=== PATIENT | female | born 1950 | race Caucasian/White ===

== ENCOUNTER 2020-04-28 18:15 | Inpatient (IN) | payer MEDICARE, BC ==
[~2020-04-28] VITALS: Ht 167.6 cm; Wt 74.4 kg
[2020-04-28] VITALS (8 sets, daily range): BP systolic 136–149; BP diastolic 53–77
[~2020-04-28 18:15] MED LIST: CRANBERRY PO; ESTR-113 PO; EZET10TA20 PO; FENO54TA PO; GLIM2TAB7 PO; METF10007 PO; MULT-445 PO; SOLI10TA2 PO; SULF-143 PO
[2020-04-28] MEDS ORDERED: IV DEXTROSE 5% 250 ML BAG. IV PRN (19:15)
[2020-04-28] MEDS ORDERED: C.DIFF MED SCREEN BY RX. MC ONE (19:15)
[2020-04-28] MEDS ORDERED: ALBU2.5V8 INH (19:58)
[2020-04-28] MEDS ORDERED: OXYB5TAB10 PO (19:58)
[2020-04-28] MEDS ORDERED: LISI-334 PO (19:58)
[2020-04-28] MEDS ORDERED: COLE625T12 PO (19:58)
[2020-04-28] MEDS ORDERED: INSU100I13 SQ (19:59)
[2020-04-28] MEDS ORDERED: cefTRIAXone IV Push 1 GM VIAL. IVP SCH ×2 (20:00→21:00)
[2020-04-28] MEDS ORDERED: ENOXAPARIN 40 MG/0.4 ML SYRINGE. SQ SCH (20:00)
[2020-04-28 20:11] LABS: BASE EXCESS ABG -3 mmol/L (-3-3); HCO3 ABG 21 mmol/L (21-28); PCO2 ABG 33 mmHg (35-46); PO2 ABG 75 mmHg (65-108); SAT O2 ABG 95 % (92-99)
[2020-04-28] MEDS ORDERED: ALBUTEROL SULFATE 2.5 MG/3 ML NEBU. INH PRN (20:15)
[2020-04-28 20:39] LABS: FIO2 ABG 100
[2020-04-28] MEDS ORDERED: INFLIXIMAB IV ONE (21:00)
[2020-04-28] MEDS ORDERED: REMDESIVIR LOAD in IV NORMAL SALINE 250ML TV IV ONE (21:00)
[2020-04-28] MEDS ORDERED: NORMAL SALINE IV ONE (21:00)
[2020-04-28] MEDS: OXYBUTYNIN CHLORIDE 5 MG TABLET PO SCH (21:10)
[2020-04-28] MEDS: DOXYCYCLINE HYCLATE 100 MG TABLET PO SCH (21:10)
[2020-04-28] MEDS: LISINOPRIL 20 MG TABLET PO SCH (21:10)
[2020-04-28] MEDS: COLESEVELAM HCL 625 MG TABLET PO SCH (21:11)
[2020-04-28] MEDS: ENOXAPARIN 40 MG/0.4 ML SYRINGE. SQ SCH (21:12)
[2020-04-28] MEDS: methylPREDNISolone SOD SUCC PF 40 MG/ML VIAL. IV SCH (21:12)
[2020-04-28] MEDS: INSULIN GLARGINE SYRINGE. SQ SCH (21:15)
[2020-04-29] VITALS (28 sets, daily range): BP systolic 124–172; BP diastolic 61–88
--- NOTE | 2020-04-29 02:00 | NUR ---
Pt arrived to unit on previous shift at approx 1825. At beginning of this RNs shift, call placed to Dr. Luz to notify of pt admission and status. Received orders to continue home meds per medication record from [facility], [facility], start Doxycycline 100 mg BID, Rocephin 1 gm IVP Q24hrs, increase Lantus to 35 units QHS, scheduled Humalog 10 units TID with high dose sliding scale, draw labs in am, consult pulmonology and ID, and okay to eat ADA diet. Orders entered into system. Current medications reconciled. Call then placed to Dr. De La Cruz. Notified of pt diagnosis and status. Received orders for convelescent plasma and redemsivir per pharmacy. Orders entered into system. Consent for blood product and participation in convelscent plasma study obtained. Convelescent plasma started at 0118 with no adverse effects noted at this time. Pt is alert and oriented x4, VSS, afebrile. Pt is currently on 15L non-rebreather mask. Pt was able to eat a cup of pudding earlier in the shift with 10L n/c, but SPO2 did drop to 87-88%. Attempted to place pt on 50% venti mask, SPO2 again in the 80s. Dr. De La Cruz is aware of pts current respiratory status. Upper lobes wheezy, lower lobes coarse and diminished upon auscultation. Radial and pedal pulses equal and strong. Pts HOB is currently elevated, pt is able to cough and deep breath and has spit up small amounts of brown colored mucus this shift. Pt is within sight of care team with water and call light within reach. Addendum: 04/29/20 at 0310 by SHENA MAO RN RN Spelling correction: Cole
[2020-04-29 05:02] LABS: BASO % 0 % (0-3); EOS % 0 % (0-3); HEMATOCRIT 35.7 % (36.0-47.0); HEMOGLOBIN 12.1 g/dL (12.0-15.5); LYMPH # 0.5 x10^3/uL (1.0-4.8); LYMPH % 4 % (24-48); MEAN CORPUSCULAR HEMOGLOBIN 32 pg (25-35); MEAN CORPUSCULAR HGB CONC 34 g/dL (31-37); MEAN CORPUSCULAR VOLUME 94 fL (79-100); MONO # 0.7 x10^3/uL (0.0-1.1); MONO % 6 % (0-9); NEUT # 10.7 x10^3/uL (1.8-7.7); NEUT % 90 % (31-73); PLATELET COUNT 220 x10^3/uL (140-400); RED CELL DISTRIBUTION WIDTH 12.9 % (11.5-14.5); WHITE BLOOD COUNT 11.9 x10^3/uL (4.0-11.0)
[2020-04-29 05:41] LABS: ALBUMIN 2.3 g/dL (3.4-5.0); ALBUMIN/GLOBULIN RATIO 0.5 (1.0-1.7); C-REACTIVE PROTEIN 44.6 mg/L (0-3.3); GFR 54.8; POTASSIUM 4.4 mmol/L (3.5-5.1); TOTAL BILIRUBIN 0.3 mg/dL (0.2-1.0); TOTAL PROTEIN 6.6 g/dL (6.4-8.2)
[2020-04-29] MEDS: methylPREDNISolone SOD SUCC PF 40 MG/ML VIAL. IV SCH ×3 (05:42→22:02)
[2020-04-29 06:46] LABS: % ATYL 2 % (0-0); % BANDS 5 % (0-9); % LYMPHS 8 % (24-48); % MONOS 3 % (0-10); % SEGS 82 % (35-66); PLT ESTIMATE ADEQUATE (ADEQUATE)
--- NOTE | 2020-04-29 07:10 | PDOC ---
Infectious Disease Note Vital Sign Vital Signs Vital Signs Date Time Temp Pulse Resp B/P (MAP) Pulse Ox O2 Delivery O2 Flow Rate FiO2 04/29/20 06:00 78 26 130/67 (88) 93 NonRebreather Mask 15.0 04/29/20 04:23 97.5 97.5 Labs Lab Laboratory Tests Test 04/28/20 19:13 04/28/20 21:42 04/29/20 04:55 O2 Saturation 95 % (92-99) Arterial Blood pH 7.41 (7.35-7.45) Arterial Blood pCO2 at Patient Temp 33 mmHg (35-46) Arterial Blood pO2 at Patient Temp 75 mmHg (65-108) Arterial Blood HCO3 21 mmol/L (21-28) Arterial Blood Base Excess -3 mmol/L (-3-3) FiO2 100 Glucose (Fingerstick) 301 mg/dL (70-99) White Blood Count 11.9 x10^3/uL (4.0-11.0) Red Blood Count 3.80 x10^6/uL (3.50-5.40) Hemoglobin 12.1 g/dL (12.0-15.5) Hematocrit 35.7 % (36.0-47.0) Mean Corpuscular Volume 94 fL (79-100) Mean Corpuscular Hemoglobin 32 pg (25-35) Mean Corpuscular Hemoglobin Concent 34 g/dL (31-37) Red Cell Distribution Width 12.9 % (11.5-14.5) Platelet Count 220 x10^3/uL (140-400) Neutrophils (%) (Auto) 90 % (31-73) Lymphocytes (%) (Auto) 4 % (24-48) Monocytes (%) (Auto) 6 % (0-9) Eosinophils (%) (Auto) 0 % (0-3) Basophils (%) (Auto) 0 % (0-3) Neutrophils # (Auto) 10.7 x10^3/uL (1.8-7.7) Lymphocytes # (Auto) 0.5 x10^3/uL (1.0-4.8) Monocytes # (Auto) 0.7 x10^3/uL (0.0-1.1) Eosinophils # (Auto) 0.0 x10^3/uL (0.0-0.7) Basophils # (Auto) 0.0 x10^3/uL (0.0-0.2) Segmented Neutrophils % 82 % (35-66) Band Neutrophils % 5 % (0-9) Lymphocytes % 8 % (24-48) Atypical Lymphocytes % (Manual) 2 % (0-0) Monocytes % 3 % (0-10) Platelet Estimate Adequate (ADEQUATE) D-Dimer (Sera) 1.74 ug/mlFEU (0.00-0.50) Sodium Level 141 mmol/L (136-145) Potassium Level 4.4 mmol/L (3.5-5.1) Chloride Level 107 mmol/L (98-107) Carbon Dioxide Level 25 mmol/L (21-32) Anion Gap 9 (6-14) Blood Urea Nitrogen 23 mg/dL (7-20) Creatinine 1.0 mg/dL (0.6-1.0) Estimated GFR (Cockcroft-Gault) 54.8 BUN/Creatinine Ratio 23 (6-20) Glucose Level 222 mg/dL (70-99) Calcium Level 9.0 mg/dL (8.5-10.1) Total Bilirubin 0.3 mg/dL (0.2-1.0) Aspartate Amino Transf (AST/SGOT) 32 U/L (15-37) Alanine Aminotransferase (ALT/SGPT) 25 U/L (14-59) Alkaline Phosphatase 39 U/L (46-116) C-Reactive Protein, Quantitative 44.6 mg/L (0-3.3) Total Protein 6.6 g/dL (6.4-8.2) Albumin 2.3 g/dL (3.4-5.0) Albumin/Globulin Ratio 0.5 (1.0-1.7) Objective Assessment Acute Hypoxic Resp failure - worsening COVID + Abx allergies - Cipro intolerance (upset stomach) Azithromycin - rash Loose stools - has been doing bowel prep for Barium enema Chronic UTI has been on Nitrofurantoin DM Plan Plan of Care Cont Steroids Plasma and Remdesivir ordered - d/w nursing Add Tropnon I and LDH F/u labs and cults D/c Rocephin and dose Meropenem Cont Doxy for now Dose Zyvox for now ? Pending intubation Critically ill 35 mins D/w Nursing Thank you # [id number] PEG VELAZQUEZ MD Apr 29, 2020 07:10
[2020-04-29] MEDS: metFORMIN 500 MG TABLET PO SCH ×2 (08:16→16:10)
[2020-04-29] MEDS: DOXYCYCLINE HYCLATE 100 MG TABLET PO SCH ×2 (08:16→20:52)
[2020-04-29] MEDS: GLIMEPIRIDE 2 MG TABLET. PO SCH (08:17)
[2020-04-29] MEDS: OXYBUTYNIN CHLORIDE 5 MG TABLET PO SCH ×3 (08:17→20:52)
[2020-04-29] MEDS: FENOFIBRATE,MICRONIZED 134 MG CAPSULE PO SCH (08:22)
[2020-04-29] MEDS: COLESEVELAM HCL 625 MG TABLET PO SCH ×2 (08:23→20:52)
[2020-04-29] MEDS: INSULIN LISPRO 300 UNITS/3 ML VIAL. SQ SCH ×6 (08:53→17:19)
[2020-04-29 09:36] LABS: BASE EXCESS ABG -2 mmol/L (-3-3); HCO3 ABG 22 mmol/L (21-28); PCO2 ABG 35 mmHg (35-46); PO2 ABG 54 mmHg (65-108); SAT O2 ABG 88 % (92-99)
[2020-04-29 09:37] LABS: FIO2 ABG 80%
--- NOTE | 2020-04-29 09:44 | CONS ---
DATE OF CONSULTATION: 04/29/2020 INFECTIOUS DISEASE CONSULTATION NOTE PATIENT'S ROOM: ICU 15. REQUESTING PHYSICIAN: Mars Luz MD REASON FOR CONSULTATION: Positive COVID pneumonia. HISTORY OF PRESENT ILLNESS: The patient is a pleasant 69-year-old female with a history of diabetes who last Thursday began taking a bowel prep for a barium enema. She developed shortness of air, cough and had a change in taste, but not change in smell. She became more short of air. She [place] [facility] [place] CT scan of her chest that showed no embolus, but she had multifocal ground glass nodular opacities, also had some prominent lymph nodes. Subsequently, she was diagnosed with COVID-19. She was placed on Solu-Medrol. She then had a CT scan of the head that showed no acute intracranial hemorrhage. White blood cell count on arrival was 7.1 with 79% neutrophils. Urinalysis with nitrite and leukocyte esterase negative, few bacteria, 5-10 wbc's. Of note, she does take chronic nitrofurantoin for recurrent urinary tract infections. Her respiratory status was worsened. She has now been transferred to [facility] for further care and evaluation and she has now on a nonrebreather flow rate of 15. Currently, she is lying in bed. She is complaining mainly of cough and feels fatigued, minimal sputum, no blood and her loose stools have improved. No dysuria, frequency. PAST MEDICAL HISTORY: Positive for obesity, recurrent urinary tract infections, diabetes. PAST SURGICAL HISTORY: Positive for eye surgery, tonsillectomy, cholecystectomy, hysterectomy and bladder lift. REVIEW OF SYSTEMS: Otherwise negative. ALLERGIES: LISTED CIPRO, WHICH CAUSES UPSET STOMACH; AZITHROMYCIN DID CAUSE RASH AND HMG-COA REDUCTASE INHIBITORS. SOCIAL HISTORY: She is . She has a dog. She denies any recent travel or exposure. She does not work. She states she has unknown some friends who have been positive for COVID, but she has not been around them. She denies any tobacco. FAMILY HISTORY: Noncontributory. CURRENT MEDICATIONS: Include plasma as ordered, remdesivir has been dose x 1. She is on ceftriaxone. She is on Welchol. Doxycycline, Lovenox, fenofibrate, Amaryl, insulin, Prinivil, metformin, Glucophage. PHYSICAL EXAMINATION: VITAL SIGNS: She is afebrile, temperature 97.5, pulse is 78, respirations 26, blood pressure 130/67, satting 93% on a nonrebreather at 15 flow rate. CONSTITUTIONAL: She is alert. She is cooperative. She does look a little fatigued. She is in no acute distress. HEENT: She has normal conjunctivae. Oral cavity, pharynx is dry. NECK: Supple, no JVD. LUNGS: Have some diffuse rhonchi. HEART: S1, S2. ABDOMEN: Obese, soft, no guarding, no rebound. EXTREMITIES: Without clubbing, cyanosis or gross edema. Peripheral IV sites are clean. NEUROLOGIC: She is nonfocal, answers questions. PSYCHIATRIC: Affect is appropriate. LABORATORY VALUES: White count 11.9, hemoglobin 12.1, platelets 220, neutrophils 90, lymphs are 4. Creatinine is 1, glucose 222, AST 32, ALT 35, alk phos 39. CRP of 44.6. IMPRESSION: 1. Acute hypoxic respiratory failure, worsening. 2. COVID positive. 3. Antibiotic allergies CIPRO INTOLERANCE CAUSES UPSET STOMACH, AZITHROMYCIN CAUSES A RASH. 4. Loose stools, had been prepping for a bowel prep for a barium enema. 5. Chronic urinary tract infection, has been on nitrofurantoin. 6. Diabetes. RECOMMENDATIONS: We will continue steroids. Remdesivir has been ordered, plasma is ordered as well. Check a troponin I as well as an LDH, followup labs and cultures. Discontinue Rocephin and dose meropenem based on her frequent urinary tract infections and need for suppressive nitrofurantoin. There also has a documentation that she may have had some Augmentin recently. We will continue doxycycline for now and we will dose Zyvox for now too. This was discussed with nursing. She is a questionable pending intubation. She is critically ill. Thank you for allowing me to see and participate in this patient's care. Should you have any questions, please do not hesitate to contact me. PEG VELAZQUEZ MD DR: MARKO/radha JOB#: [id number] / [id number] SARANYA
[2020-04-29] MEDS: STERILE WATER for RESP 1,000 ML BAG. INH PRN ×2 (10:00→17:03)
--- NOTE | 2020-04-29 10:00 | HP ---
ADMIT DATE: 04/28/2020 HISTORY OF PRESENT ILLNESS: The patient is a 69-year-old female patient, who was admitted on 04/26/2020 through the Emergency Room of [facility] with generalized weakness. She was brought by EMS with reported generalized weakness after getting up to use the restroom. On the morning of admission, the patient has been doing dry enema in preparation for barium enema. The patient was found to be febrile with a temperature of 101.1. She reports 1-week history of cough and generalized malaise and has been seen by primary care physician who was started her empirically on antibiotic for possible bronchitis. She has undergone a chest x-ray as an outpatient and was noted to have some possible concern for infiltrate. The patient denies known exposure to COVID-19. Denied any nausea or vomiting. Apparently, her daughter at age of 36 because of colon cancer and she was investigated by Dr. Mitchell and apparently had a colonoscopy and also was preparing for barium enema for further evaluation of her colon according to her, she was admitted to [facility] and was started on IV antibiotic as well as IV Solu-Medrol. When she arrived, she was actually on room air, but over the next 48 hours her oxygen requirement has dramatically worsened up to 15 liters by nonrebreather mask. Her chest x-ray has dramatically worsened and therefore a decision was made to transfer her to [facility] ICU for further evaluation and to consult the pathology technician and the Infectious Disease specialist. PAST MEDICAL HISTORY: Significant for type 2 diabetes mellitus, hyperlipidemia, hypertension, and overactive bladder. PAST SURGICAL HISTORY: Significant for tonsillectomy, cholecystectomy, total abdominal hysterectomy, hemorrhoidectomy and colonoscopy x 2. ALLERGIES: SHE IS ALLERGIC TO STATINS, CIPROFLOXACIN AND ERYTHROMYCIN. MEDICATIONS: Her home medication on admission to [facility] consisted of amoxicillin and clavulanic acid 875 mg twice a day, nitrofurantoin monohydrate 100 mg twice a day, albuterol sulfate 2 puffs every 6 hours. She was also on Welchol 625 mg, she takes 6 tablets daily; fenofibrate nanocrystallized 145 mg once a day, lisinopril 20 mg once a day; methylprednisolone 4 mg once a day; metformin 1000 mg twice a day; Lantus insulin 27 units at bedtime, sulfonylurea glimepiride 4 mg daily and Detrol LA 4 mg capsule once a day. FAMILY HISTORY: She is the only child. She has no brothers or sisters. Her father at age of 74 because of complication of diabetes. Her mother at the age of 82 at the [facility] after she had her cerebrovascular accident. SOCIAL HISTORY: She is and has 2 daughters who are healthy. One daughter at age of 36 because of colon cancer. She never smoked, does not drink alcohol or use any drugs. She was a [id number] mom. REVIEW OF SYSTEMS: GENERAL: When I saw her this morning, she was resting slightly propped up in bed, eating her breakfast, continued to desaturate and oxygen saturation was 84% on 15 liters by nasal cannula. She was pale, but no jaundice, cyanosis or thyromegaly. No jugular venous distention. No lower limb edema. VITAL SIGNS: Her heart rate was 83, blood pressure 146/71, temperature was 97.5, respiratory rate 29 and oxygen saturation was 84% by 15 liters by nasal cannula. HEAD, EYES, EARS, NOSE AND THROAT: Showed normocephalic, atraumatic. NECK: Supple. HEART: Showed normal first and second heart sounds. No gallop or murmur. CHEST: Showed central trachea, equal bilateral expansion, air entry, vesicular sounds with coarse crackles and few scattered rhonchi bilaterally. ABDOMEN: Distended, soft, nontender. NEUROLOGIC: She is awake, alert, responding appropriately. All cranial nerves intact. EXTREMITIES: She moves extremities without difficulty. LABORATORY DATA: This morning showed a white cell count of 11,900, hemoglobin 12, hematocrit 36, MCV 94 and platelet count 220,000 with a manual differential showed 90% polymorphs. Her serum sodium was 141, potassium 4.4, chloride 107, bicarbonate 25, anion gap of 9, BUN 23, creatinine 1, estimated GFR was 54.8 mL per minute. Her glucose was 122, calcium was 9. Total bilirubin, AST, ALT, alkaline phosphatase were normal. Her lactate dehydrogenase was 617. C-reactive protein was 44.6. Total protein was 6.6, albumin 2.3. Her D-dimer was high at 1.74 and blood gas showed a pH of 7.41, pCO2 of 33, pO2 of 75, bicarbonate 21, oxygen saturation was 95% on FiO2 of 100%. ASSESSMENT AND PLAN: 1. In summary, this is a 69-year-old female patient with COVID-19 pneumonia. 2. Acute hypoxic respiratory failure. 3. The patient has multiple other medical problems including: A. Hypertension. B. Type 2 diabetes mellitus. C. Hyperlipidemia. D. Overactive bladder. PLAN: Plan is to continue with IV antibiotic in the form of ceftriaxone as well as doxycycline. Continue with DVT prophylaxis. Continue with GI prophylaxis. Continue to monitor blood sugar and adjust insulin as needed. I did increase her Lantus to 35 units at bedtime, started her on scheduled dose of Humalog insulin 10 units before meals plus high dose sliding scale. I have consulted the Infectious Disease specialist as well as the pathology technician. The patient will need to be started on remdesivir as well as convalescent plasma. The patient's condition is critical and she might require eventually intubation and mechanical ventilation. KAILEY FRANK MD DR: SHAWN/radha JOB#: [id number] / [id number]
--- NOTE | 2020-04-29 11:07 | RAD ---
EXAM: AP View of the chest DATE: 04/29/2020 9:05 AM INDICATION: worsening SOB COMPARISON: No Prior FINDINGS: The heart is not enlarged. Mediastinal and hilar contours are normal. Diffuse bilateral parenchymal airspace opacities may represent consolidative process such as pneumonia. No pleural effusion or pneumothorax. IMPRESSION: Diffuse bilateral parenchymal airspace opacities may represent consolidative process such as pneumonia. Electronically signed by: Miguel Scanlon MD (04/29/2020 11:04 AM) [id number]
[2020-04-29] MEDS: MEROPENEM 500 MG in IV NORMAL SALINE 50ML 50 ML IV SCH ×2 (11:57→17:39)
[2020-04-29] MEDS: LACTOBACILLUS RHAMNOSUS GG 1 CAPSULE. PO SCH ×2 (11:57→20:52)
--- NOTE | 2020-04-29 14:45 | PDOC ---
PULMONARY PROGRESS NOTES DATE: 04/29/20 TIME: 14:44 Vitals Vital Signs Date Time Temp Pulse Resp B/P (MAP) Pulse Ox O2 Delivery O2 Flow Rate FiO2 04/29/20 14:00 82 23 146/71 (96) 95 Nasal Cannula 40.0 04/29/20 12:00 98.4 98.4 Labs Laboratory Tests Test 04/28/20 19:13 04/28/20 21:42 04/29/20 04:55 04/29/20 09:33 O2 Saturation 95 % (92-99) 88 % (92-99) Arterial Blood pH 7.41 (7.35-7.45) 7.41 (7.35-7.45) Arterial Blood pCO2 at Patient Temp 33 mmHg (35-46) 35 mmHg (35-46) Arterial Blood pO2 at Patient Temp 75 mmHg (65-108) 54 mmHg (65-108) Arterial Blood HCO3 21 mmol/L (21-28) 22 mmol/L (21-28) Arterial Blood Base Excess -3 mmol/L (-3-3) -2 mmol/L (-3-3) FiO2 100 80% Glucose (Fingerstick) 301 mg/dL (70-99) White Blood Count 11.9 x10^3/uL (4.0-11.0) Red Blood Count 3.80 x10^6/uL (3.50-5.40) Hemoglobin 12.1 g/dL (12.0-15.5) Hematocrit 35.7 % (36.0-47.0) Mean Corpuscular Volume 94 fL (79-100) Mean Corpuscular Hemoglobin 32 pg (25-35) Mean Corpuscular Hemoglobin Concent 34 g/dL (31-37) Red Cell Distribution Width 12.9 % (11.5-14.5) Platelet Count 220 x10^3/uL (140-400) Neutrophils (%) (Auto) 90 % (31-73) Lymphocytes (%) (Auto) 4 % (24-48) Monocytes (%) (Auto) 6 % (0-9) Eosinophils (%) (Auto) 0 % (0-3) Basophils (%) (Auto) 0 % (0-3) Neutrophils # (Auto) 10.7 x10^3/uL (1.8-7.7) Lymphocytes # (Auto) 0.5 x10^3/uL (1.0-4.8) Monocytes # (Auto) 0.7 x10^3/uL (0.0-1.1) Eosinophils # (Auto) 0.0 x10^3/uL (0.0-0.7) Basophils # (Auto) 0.0 x10^3/uL (0.0-0.2) Segmented Neutrophils % 82 % (35-66) Band Neutrophils % 5 % (0-9) Lymphocytes % 8 % (24-48) Atypical Lymphocytes % (Manual) 2 % (0-0) Monocytes % 3 % (0-10) Platelet Estimate Adequate (ADEQUATE) D-Dimer (Sera) 1.74 ug/mlFEU (0.00-0.50) Sodium Level 141 mmol/L (136-145) Potassium Level 4.4 mmol/L (3.5-5.1) Chloride Level 107 mmol/L (98-107) Carbon Dioxide Level 25 mmol/L (21-32) Anion Gap 9 (6-14) Blood Urea Nitrogen 23 mg/dL (7-20) Creatinine 1.0 mg/dL (0.6-1.0) Estimated GFR (Cockcroft-Gault) 54.8 BUN/Creatinine Ratio 23 (6-20) Glucose Level 222 mg/dL (70-99) Calcium Level 9.0 mg/dL (8.5-10.1) Total Bilirubin 0.3 mg/dL (0.2-1.0) Aspartate Amino Transf (AST/SGOT) 32 U/L (15-37) Alanine Aminotransferase (ALT/SGPT) 25 U/L (14-59) Alkaline Phosphatase 39 U/L (46-116) Lactate Dehydrogenase 617 U/L (81-234) C-Reactive Protein, Quantitative 44.6 mg/L (0-3.3) Total Protein 6.6 g/dL (6.4-8.2) Albumin 2.3 g/dL (3.4-5.0) Albumin/Globulin Ratio 0.5 (1.0-1.7) Test 04/29/20 12:03 Glucose (Fingerstick) 254 mg/dL (70-99) Laboratory Tests Test 04/28/20 19:13 04/28/20 21:42 04/29/20 04:55 04/29/20 09:33 O2 Saturation 95 % (92-99) 88 % (92-99) Arterial Blood pH 7.41 (7.35-7.45) 7.41 (7.35-7.45) Arterial Blood pCO2 at Patient Temp 33 mmHg (35-46) 35 mmHg (35-46) Arterial Blood pO2 at Patient Temp 75 mmHg (65-108) 54 mmHg (65-108) Arterial Blood HCO3 21 mmol/L (21-28) 22 mmol/L (21-28) Arterial Blood Base Excess -3 mmol/L (-3-3) -2 mmol/L (-3-3) FiO2 100 80% Glucose (Fingerstick) 301 mg/dL (70-99) White Blood Count 11.9 x10^3/uL (4.0-11.0) Red Blood Count 3.80 x10^6/uL (3.50-5.40) Hemoglobin 12.1 g/dL (12.0-15.5) Hematocrit 35.7 % (36.0-47.0) Mean Corpuscular Volume 94 fL (79-100) Mean Corpuscular Hemoglobin 32 pg (25-35) Mean Corpuscular Hemoglobin Concent 34 g/dL (31-37) Red Cell Distribution Width 12.9 % (11.5-14.5) Platelet Count 220 x10^3/uL (140-400) Neutrophils (%) (Auto) 90 % (31-73) Lymphocytes (%) (Auto) 4 % (24-48) Monocytes (%) (Auto) 6 % (0-9) Eosinophils (%) (Auto) 0 % (0-3) Basophils (%) (Auto) 0 % (0-3) Neutrophils # (Auto) 10.7 x10^3/uL (1.8-7.7) Lymphocytes # (Auto) 0.5 x10^3/uL (1.0-4.8) Monocytes # (Auto) 0.7 x10^3/uL (0.0-1.1) Eosinophils # (Auto) 0.0 x10^3/uL (0.0-0.7) Basophils # (Auto) 0.0 x10^3/uL (0.0-0.2) Segmented Neutrophils % 82 % (35-66) Band Neutrophils % 5 % (0-9) Lymphocytes % 8 % (24-48) Atypical Lymphocytes % (Manual) 2 % (0-0) Monocytes % 3 % (0-10) Platelet Estimate Adequate (ADEQUATE) D-Dimer (Sera) 1.74 ug/mlFEU (0.00-0.50) Sodium Level 141 mmol/L (136-145) Potassium Level 4.4 mmol/L (3.5-5.1) Chloride Level 107 mmol/L (98-107) Carbon Dioxide Level 25 mmol/L (21-32) Anion Gap 9 (6-14) Blood Urea Nitrogen 23 mg/dL (7-20) Creatinine 1.0 mg/dL (0.6-1.0) Estimated GFR (Cockcroft-Gault) 54.8 BUN/Creatinine Ratio 23 (6-20) Glucose Level 222 mg/dL (70-99) Calcium Level 9.0 mg/dL (8.5-10.1) Total Bilirubin 0.3 mg/dL (0.2-1.0) Aspartate Amino Transf (AST/SGOT) 32 U/L (15-37) Alanine Aminotransferase (ALT/SGPT) 25 U/L (14-59) Alkaline Phosphatase 39 U/L (46-116) Lactate Dehydrogenase 617 U/L (81-234) C-Reactive Protein, Quantitative 44.6 mg/L (0-3.3) Total Protein 6.6 g/dL (6.4-8.2) Albumin 2.3 g/dL (3.4-5.0) Albumin/Globulin Ratio 0.5 (1.0-1.7) Test 04/29/20 12:03 Glucose (Fingerstick) 254 mg/dL (70-99) Medications Active Scripts Medications Dose Route/Sig Max Daily Dose Days Date Category Lantus Solostar (Insulin Glargine,Hum.rec.anlog) 100 Unit/1 Ml Insuln.pen 35 Unit SQ QHS 04/28/20 Reported Welchol (Colesevelam Hcl) 625 Mg Tablet 3 Tab PO BID 30 04/28/20 Reported Proair Hfa (Albuterol Sulfate) 8.5 Gm Hfa.aer.ad 1 Puff INH PRN Q6HRS PRN 04/28/20 Reported Oxybutynin Chloride 5 Mg Tablet 5 Mg PO TID 04/28/20 Reported Lisinopril 20 Mg Tablet 1 Tab PO QHS 04/28/20 Reported Fenofibrate 54 Mg Tablet 145 Mg PO DAILY 05/27/14 Reported Metformin Hcl 1,000 Mg Tablet 1 Tab PO BID 05/27/14 Reported Glimepiride 2 Mg Tablet 1 Tab PO DAILY 05/27/14 Reported Impression . Full note dictated, agree with current medical management COVID-19 pneumonia CONY PALMER MD Apr 29, 2020 14:45
[2020-04-29] MEDS: LISINOPRIL 20 MG TABLET PO SCH (20:52)
[2020-04-29] MEDS: ENOXAPARIN 40 MG/0.4 ML SYRINGE. SQ SCH (20:53)
[2020-04-29] MEDS: REMDESIVIR 100mg in NORMAL SALINE 250ML X 4 DAYS IV SCH (20:53)
[2020-04-29] MEDS: INSULIN GLARGINE SYRINGE. SQ SCH (20:55)
--- NOTE | 2020-04-29 23:15 | CONS ---
DATE OF CONSULTATION: 04/29/2020 ATTENDING PHYSICIAN: Dr. Luz. CONSULTING PHYSICIAN: Cony Palmer M.D. REASON FOR CONSULTATION: The patient is seen in pulmonary consultation at the request of Dr. Luz for hypoxemia, respiratory failure and abnormal chest x-ray revealing diffuse parenchymal opacities. HISTORY OF PRESENT ILLNESS: The patient is a 69-year-old female with a history of diabetes. Thursday, she was being prepped for a barium enema, she developed shortness of air, change in taste. She presented to [facility] CT chest, which showed no emboli. She had ground glass opacities. She was subsequently tested for SARS COVID 2 and tested positive. She was transferred for higher level of care to [facility]. She is currently on high flow oxygen. She is awake, alert, following commands. I was asked to see her in consultation. Her arterial blood gas earlier today revealed a pH of 7.41, PaCO2 of 35, pO2 of 54. White count was 11,000. Electrolytes were noted. BUN was slightly elevated. D-dimer was elevated at 1.74. The patient was seen in consultation by the Infectious Disease Service. She had been started on steroids. Dr. Posada started her on remdesivir as well as convalescent serum. The patient is currently on antibiotics for possible bacterial infection. She is awake, alert, following commands. No chest pain. No pressure. PAST MEDICAL HISTORY: Remarkable for recurrent urinary tract infections, obesity, diabetes. PAST SURGICAL HISTORY: Previous tonsillectomy, cholecystectomy and hysterectomy. REVIEW OF SYSTEMS: As indicated above, otherwise, a 10-point system was reviewed and negative. SOCIAL HISTORY: She is . She is not quite sure where she contracted the virus. FAMILY HISTORY: Noncontributory. CURRENT MEDICATIONS: List was reviewed. PHYSICAL EXAMINATION: VITAL SIGNS: Stable. O2 saturation was greater than 92%, currently on Vapotherm. HEENT: Eyes: The sclerae were nonicteric. NECK: Jugular venous distention was not elevated. No lymphadenopathy. CHEST: Full expansion. LUNGS: Rales bilaterally. CARDIOVASCULAR: Regular rate and rhythm with S1, S2, no S3. ABDOMEN: Soft, nontender, nondistended. EXTREMITIES: No clubbing, cyanosis or edema. LABORATORY DATA: As indicated above. IMPRESSION: 1. Acute hypoxemic respiratory failure. 2. COVID-19 pneumonia. 3. Possible bacterial pneumonia. 4. Abnormal CT chest, compatible with COVID-19. 5. Chronic urinary tract infection. 6. Diabetes. PLAN: 1. We will continue current support with oxygen. 2. Remdesivir. 3. Convalescent serum. 4. Steroids. 5. Follow Infectious Disease recommendations. 6. Deep venous thrombosis and gastrointestinal prophylaxis. We will increase Lovenox 40 every 12 hours. 7. Follow D-dimer. I do appreciate the privilege in sharing in the patient's care. CRITICAL CARE TIME: Start time at 1400; stop time at 1444. CONY PALMER MD DR: SUSU/radha JOB#: [id number] / [id number]
[2020-04-30] VITALS (24 sets, daily range): BP systolic 123–184; BP diastolic 50–88
[2020-04-30] MEDS: MEROPENEM 500 MG in IV NORMAL SALINE 50ML 50 ML IV SCH ×5 (00:25→23:43)
[2020-04-30 03:01] LABS: HEMATOCRIT 34.3 % (36.0-47.0); HEMOGLOBIN 11.5 g/dL (12.0-15.5); RED BLOOD COUNT 3.64 x10^6/uL (3.50-5.40); RED CELL DISTRIBUTION WIDTH 12.9 % (11.5-14.5); WHITE BLOOD COUNT 12.6 x10^3/uL (4.0-11.0)
[2020-04-30 03:18] LABS: ALBUMIN/GLOBULIN RATIO 0.5 (1.0-1.7); CALCIUM 8.6 mg/dL (8.5-10.1); CREATININE 0.9 mg/dL (0.6-1.0); GFR 61.9; POTASSIUM 4.6 mmol/L (3.5-5.1); TOTAL BILIRUBIN 0.3 mg/dL (0.2-1.0)
[2020-04-30] MEDS: methylPREDNISolone SOD SUCC PF 40 MG/ML VIAL. IV SCH ×3 (05:47→20:49)
--- NOTE | 2020-04-30 07:13 | PDOC ---
Infectious Disease Note Subjective Subjective Doing ok. No gross SOA + cough with occ sputum Denies F/C/S/N/V/D/rash ROS ROS o/w neg Vital Sign Vital Signs Vital Signs Date Time Temp Pulse Resp B/P (MAP) Pulse Ox O2 Delivery O2 Flow Rate FiO2 04/30/20 06:00 68 23 141/76 (97) 95 Nasal Cannula 40.0 04/30/20 04:00 98.3 98.3 Physical Exam PHYSICAL EXAM CONSTITUTIONAL: She is alert. She is cooperative. She does look a little less fatigued. She is in no acute distress. HEENT: She has normal conjunctivae. Oral cavity, pharynx is dry. NECK: Supple, no JVD. LUNGS: Have some diffuse rhonchi. HEART: S1, S2. ABDOMEN: Obese, soft, no guarding, no rebound. : Xavier EXTREMITIES: Without clubbing, cyanosis or gross edema. Peripheral IV sites are clean. NEUROLOGIC: She is nonfocal, answers questions. PSYCHIATRIC: Affect is appropriate Labs Lab Laboratory Tests Test 04/29/20 08:38 04/29/20 09:33 04/29/20 12:03 04/29/20 17:15 Glucose (Fingerstick) 200 mg/dL (70-99) 254 mg/dL (70-99) 155 mg/dL (70-99) O2 Saturation 88 % (92-99) Arterial Blood pH 7.41 (7.35-7.45) Arterial Blood pCO2 at Patient Temp 35 mmHg (35-46) Arterial Blood pO2 at Patient Temp 54 mmHg (65-108) Arterial Blood HCO3 22 mmol/L (21-28) Arterial Blood Base Excess -2 mmol/L (-3-3) FiO2 80% Test 04/29/20 21:36 04/29/20 23:46 04/30/20 02:50 Glucose (Fingerstick) 109 mg/dL (70-99) 201 mg/dL (70-99) White Blood Count 12.6 x10^3/uL (4.0-11.0) Red Blood Count 3.64 x10^6/uL (3.50-5.40) Hemoglobin 11.5 g/dL (12.0-15.5) Hematocrit 34.3 % (36.0-47.0) Mean Corpuscular Volume 94 fL (79-100) Mean Corpuscular Hemoglobin 32 pg (25-35) Mean Corpuscular Hemoglobin Concent 34 g/dL (31-37) Red Cell Distribution Width 12.9 % (11.5-14.5) Platelet Count 219 x10^3/uL (140-400) D-Dimer (Sera) 2.46 ug/mlFEU (0.00-0.50) Sodium Level 140 mmol/L (136-145) Potassium Level 4.6 mmol/L (3.5-5.1) Chloride Level 108 mmol/L (98-107) Carbon Dioxide Level 26 mmol/L (21-32) Anion Gap 6 (6-14) Blood Urea Nitrogen 26 mg/dL (7-20) Creatinine 0.9 mg/dL (0.6-1.0) Estimated GFR (Cockcroft-Gault) 61.9 BUN/Creatinine Ratio 29 (6-20) Glucose Level 159 mg/dL (70-99) Calcium Level 8.6 mg/dL (8.5-10.1) Total Bilirubin 0.3 mg/dL (0.2-1.0) Aspartate Amino Transf (AST/SGOT) 28 U/L (15-37) Alanine Aminotransferase (ALT/SGPT) 19 U/L (14-59) Alkaline Phosphatase 36 U/L (46-116) Total Protein 6.0 g/dL (6.4-8.2) Albumin 2.0 g/dL (3.4-5.0) Albumin/Globulin Ratio 0.5 (1.0-1.7) Objective Assessment Acute Hypoxic Resp failure - on high flow 40 and 90 % COVID + Leukocytosis - on steroids Abx allergies - Cipro intolerance (upset stomach) Azithromycin - rash Loose stools - some better - had been doing bowel prep for Barium enema Chronic UTI has been on Nitrofurantoin DM Plan Plan of Care Cont Steroids Plasma and Remdesivir 04/29 - d/w nursing Added Tropnon I 04/29 but not back d/w nursing F/u labs and cults Cont Meropenem/Doxy/Zyvox for now Critically ill D/w Nursing and PEG Chopra MD Apr 30, 2020 07:13
[2020-04-30] MEDS ORDERED: ALBUTEROL SULFATE 2.5 MG/3 ML NEBU. INH PRN (09:26)
--- NOTE | 2020-04-30 09:29 | PDOC ---
PULMONARY PROGRESS NOTES DATE: 04/30/20 TIME: 09:24 Subjective Patient reports that she is feeling much better today Reports mild shortness of breath however improved from yesterday, and a productive cough with white sputum Afebrile overnight No other concerns from nursing Vitals Vital Signs Date Time Temp Pulse Resp B/P (MAP) Pulse Ox O2 Delivery O2 Flow Rate FiO2 04/30/20 08:42 96 VAPO THERM 40.0 04/30/20 06:00 68 23 141/76 (97) 04/30/20 04:00 98.3 98.3 Labs Laboratory Tests Test 04/28/20 19:13 04/28/20 21:42 04/29/20 04:55 04/29/20 08:38 O2 Saturation 95 % (92-99) Arterial Blood pH 7.41 (7.35-7.45) Arterial Blood pCO2 at Patient Temp 33 mmHg (35-46) Arterial Blood pO2 at Patient Temp 75 mmHg (65-108) Arterial Blood HCO3 21 mmol/L (21-28) Arterial Blood Base Excess -3 mmol/L (-3-3) FiO2 100 Glucose (Fingerstick) 301 mg/dL (70-99) 200 mg/dL (70-99) White Blood Count 11.9 x10^3/uL (4.0-11.0) Red Blood Count 3.80 x10^6/uL (3.50-5.40) Hemoglobin 12.1 g/dL (12.0-15.5) Hematocrit 35.7 % (36.0-47.0) Mean Corpuscular Volume 94 fL (79-100) Mean Corpuscular Hemoglobin 32 pg (25-35) Mean Corpuscular Hemoglobin Concent 34 g/dL (31-37) Red Cell Distribution Width 12.9 % (11.5-14.5) Platelet Count 220 x10^3/uL (140-400) Neutrophils (%) (Auto) 90 % (31-73) Lymphocytes (%) (Auto) 4 % (24-48) Monocytes (%) (Auto) 6 % (0-9) Eosinophils (%) (Auto) 0 % (0-3) Basophils (%) (Auto) 0 % (0-3) Neutrophils # (Auto) 10.7 x10^3/uL (1.8-7.7) Lymphocytes # (Auto) 0.5 x10^3/uL (1.0-4.8) Monocytes # (Auto) 0.7 x10^3/uL (0.0-1.1) Eosinophils # (Auto) 0.0 x10^3/uL (0.0-0.7) Basophils # (Auto) 0.0 x10^3/uL (0.0-0.2) Segmented Neutrophils % 82 % (35-66) Band Neutrophils % 5 % (0-9) Lymphocytes % 8 % (24-48) Atypical Lymphocytes % (Manual) 2 % (0-0) Monocytes % 3 % (0-10) Platelet Estimate Adequate (ADEQUATE) D-Dimer (Sera) 1.74 ug/mlFEU (0.00-0.50) Sodium Level 141 mmol/L (136-145) Potassium Level 4.4 mmol/L (3.5-5.1) Chloride Level 107 mmol/L (98-107) Carbon Dioxide Level 25 mmol/L (21-32) Anion Gap 9 (6-14) Blood Urea Nitrogen 23 mg/dL (7-20) Creatinine 1.0 mg/dL (0.6-1.0) Estimated GFR (Cockcroft-Gault) 54.8 BUN/Creatinine Ratio 23 (6-20) Glucose Level 222 mg/dL (70-99) Calcium Level 9.0 mg/dL (8.5-10.1) Total Bilirubin 0.3 mg/dL (0.2-1.0) Aspartate Amino Transf (AST/SGOT) 32 U/L (15-37) Alanine Aminotransferase (ALT/SGPT) 25 U/L (14-59) Alkaline Phosphatase 39 U/L (46-116) Lactate Dehydrogenase 617 U/L (81-234) C-Reactive Protein, Quantitative 44.6 mg/L (0-3.3) Total Protein 6.6 g/dL (6.4-8.2) Albumin 2.3 g/dL (3.4-5.0) Albumin/Globulin Ratio 0.5 (1.0-1.7) Test 04/29/20 09:33 04/29/20 12:03 04/29/20 17:15 04/29/20 21:36 O2 Saturation 88 % (92-99) Arterial Blood pH 7.41 (7.35-7.45) Arterial Blood pCO2 at Patient Temp 35 mmHg (35-46) Arterial Blood pO2 at Patient Temp 54 mmHg (65-108) Arterial Blood HCO3 22 mmol/L (21-28) Arterial Blood Base Excess -2 mmol/L (-3-3) FiO2 80% Glucose (Fingerstick) 254 mg/dL (70-99) 155 mg/dL (70-99) 109 mg/dL (70-99) Test 04/29/20 23:46 04/30/20 02:50 Glucose (Fingerstick) 201 mg/dL (70-99) White Blood Count 12.6 x10^3/uL (4.0-11.0) Red Blood Count 3.64 x10^6/uL (3.50-5.40) Hemoglobin 11.5 g/dL (12.0-15.5) Hematocrit 34.3 % (36.0-47.0) Mean Corpuscular Volume 94 fL (79-100) Mean Corpuscular Hemoglobin 32 pg (25-35) Mean Corpuscular Hemoglobin Concent 34 g/dL (31-37) Red Cell Distribution Width 12.9 % (11.5-14.5) Platelet Count 219 x10^3/uL (140-400) D-Dimer (Sera) 2.46 ug/mlFEU (0.00-0.50) Sodium Level 140 mmol/L (136-145) Potassium Level 4.6 mmol/L (3.5-5.1) Chloride Level 108 mmol/L (98-107) Carbon Dioxide Level 26 mmol/L (21-32) Anion Gap 6 (6-14) Blood Urea Nitrogen 26 mg/dL (7-20) Creatinine 0.9 mg/dL (0.6-1.0) Estimated GFR (Cockcroft-Gault) 61.9 BUN/Creatinine Ratio 29 (6-20) Glucose Level 159 mg/dL (70-99) Calcium Level 8.6 mg/dL (8.5-10.1) Total Bilirubin 0.3 mg/dL (0.2-1.0) Aspartate Amino Transf (AST/SGOT) 28 U/L (15-37) Alanine Aminotransferase (ALT/SGPT) 19 U/L (14-59) Alkaline Phosphatase 36 U/L (46-116) Total Protein 6.0 g/dL (6.4-8.2) Albumin 2.0 g/dL (3.4-5.0) Albumin/Globulin Ratio 0.5 (1.0-1.7) Laboratory Tests Test 04/29/20 09:33 04/29/20 12:03 04/29/20 17:15 04/29/20 21:36 O2 Saturation 88 % (92-99) Arterial Blood pH 7.41 (7.35-7.45) Arterial Blood pCO2 at Patient Temp 35 mmHg (35-46) Arterial Blood pO2 at Patient Temp 54 mmHg (65-108) Arterial Blood HCO3 22 mmol/L (21-28) Arterial Blood Base Excess -2 mmol/L (-3-3) FiO2 80% Glucose (Fingerstick) 254 mg/dL (70-99) 155 mg/dL (70-99) 109 mg/dL (70-99) Test 04/29/20 23:46 04/30/20 02:50 Glucose (Fingerstick) 201 mg/dL (70-99) White Blood Count 12.6 x10^3/uL (4.0-11.0) Red Blood Count 3.64 x10^6/uL (3.50-5.40) Hemoglobin 11.5 g/dL (12.0-15.5) Hematocrit 34.3 % (36.0-47.0) Mean Corpuscular Volume 94 fL (79-100) Mean Corpuscular Hemoglobin 32 pg (25-35) Mean Corpuscular Hemoglobin Concent 34 g/dL (31-37) Red Cell Distribution Width 12.9 % (11.5-14.5) Platelet Count 219 x10^3/uL (140-400) D-Dimer (Sera) 2.46 ug/mlFEU (0.00-0.50) Sodium Level 140 mmol/L (136-145) Potassium Level 4.6 mmol/L (3.5-5.1) Chloride Level 108 mmol/L (98-107) Carbon Dioxide Level 26 mmol/L (21-32) Anion Gap 6 (6-14) Blood Urea Nitrogen 26 mg/dL (7-20) Creatinine 0.9 mg/dL (0.6-1.0) Estimated GFR (Cockcroft-Gault) 61.9 BUN/Creatinine Ratio 29 (6-20) Glucose Level 159 mg/dL (70-99) Calcium Level 8.6 mg/dL (8.5-10.1) Total Bilirubin 0.3 mg/dL (0.2-1.0) Aspartate Amino Transf (AST/SGOT) 28 U/L (15-37) Alanine Aminotransferase (ALT/SGPT) 19 U/L (14-59) Alkaline Phosphatase 36 U/L (46-116) Total Protein 6.0 g/dL (6.4-8.2) Albumin 2.0 g/dL (3.4-5.0) Albumin/Globulin Ratio 0.5 (1.0-1.7) Medications Active Scripts Medications Dose Route/Sig Max Daily Dose Days Date Category Lantus Solostar (Insulin Glargine,Hum.rec.anlog) 100 Unit/1 Ml Insuln.pen 35 Unit SQ QHS 04/28/20 Reported Welchol (Colesevelam Hcl) 625 Mg Tablet 3 Tab PO BID 30 04/28/20 Reported Proair Hfa (Albuterol Sulfate) 8.5 Gm Hfa.aer.ad 1 Puff INH PRN Q6HRS PRN 04/28/20 Reported Oxybutynin Chloride 5 Mg Tablet 5 Mg PO TID 04/28/20 Reported Lisinopril 20 Mg Tablet 1 Tab PO QHS 04/28/20 Reported Fenofibrate 54 Mg Tablet 145 Mg PO DAILY 05/27/14 Reported Metformin Hcl 1,000 Mg Tablet 1 Tab PO BID 05/27/14 Reported Glimepiride 2 Mg Tablet 1 Tab PO DAILY 05/27/14 Reported Comments CXR IMPRESSION: Diffuse bilateral parenchymal airspace opacities may represent consolidative process such as pneumonia. Impression . IMPRESSION: 1. Acute hypoxemic respiratory failure. 2. COVID-19 pneumonia. 3. Possible bacterial pneumonia. 4. Abnormal CT chest, compatible with COVID-19. 5. Chronic urinary tract infection. 6. Diabetes. Plan . PLAN: Continue supplemental oxygen, currently on Vapotherm 40 L and 90% Chest x-ray reviewed, bilateral pulmonary infiltrates consistent with COVID-19 infection Status post remdesivir/Convalescent serum. Continue IV steroids steroids. Follow Infectious Disease recommendations. Follow D-dimer. High-dose DVT prophylaxis/GI prophylaxis Follow clinical course Discussed with RN/RT CONY PALMER MD Apr 30, 2020 09:29
--- NOTE | 2020-04-30 09:34 | PN ---
DATE: 04/30/2020 SUBJECTIVE: The patient is resting, slightly propped up in bed, in no apparent distress. On questioning her, she denied any complaints. Nursing staff did not voice any concerns, said she had an uneventful night. She is on Vapotherm on 40 liters on FiO2 of 90%, maintaining her oxygen saturation at 95%. OBJECTIVE: GENERAL: On examining her, she was pale, but no jaundice, cyanosis or thyromegaly. No jugular venous distention. No limb edema. VITAL SIGNS: Her heart rate was 68, blood pressure 141/76, temperature 98.3, respiratory rate was 23, and oxygen saturation was 95% on Vapotherm with 40 liters of oxygen on FiO2 of 90%. HEENT: Showed normocephalic, atraumatic. NECK: Supple. HEART: Showed normal first and second heart sounds. No gallop, rub or murmur. CHEST: Shows central trachea, equal bilateral expansion, air entry with coarse crackles on both sides. Very few rhonchi. ABDOMEN: Distended, soft, nontender. NEUROLOGIC: She was sleepy, but arousable. All cranial nerves intact. She moves extremities without difficulty. Her intake was 654, output was 975. LABORATORY DATA: As of this morning, her white cell count was 12,600, hemoglobin 11.5, hematocrit 34, MCV 94 and platelet count of 219,000. Her chemistry showed a serum sodium 140, potassium 4.6, chloride 108, bicarbonate 26, anion gap of 6, BUN 26, creatinine 0.9, estimated GFR was 62 mL per minute. Her glucose 159, calcium was 8.6. Total bilirubin, AST, ALT, alkaline phosphatase were normal. Total protein 6, albumin 2. Her D-dimer is going up to 2.46 from 1.74. ASSESSMENT: 1. COVID-19 pneumonia. 2. Acute hypoxic respiratory failure. 3. The patient has multiple other medical problems including: A. Hypertension. B. Type 2 diabetes mellitus. C. Hyperlipidemia. D. Overactive bladder. PLAN: To continue with IV antibiotic as recommended by the Infectious Disease specialist. Continue with oxygen supplementation. She is now on Vapotherm on 40 liters of oxygen with FiO2 of 90%. Continue with DVT prophylaxis. Continue GI prophylaxis. The patient received remdesivir and convalescent plasma as well as she continued to be on steroids. I did adjust her insulin and her blood sugar seems to be much better. KAILEY FRANK MD DR: SHAWN/radha JOB#: [id number] / [id number]
[2020-04-30] MEDS: DOXYCYCLINE HYCLATE 100 MG TABLET PO SCH ×2 (09:45→20:47)
[2020-04-30] MEDS: metFORMIN 500 MG TABLET PO SCH ×2 (09:47→17:17)
[2020-04-30] MEDS: LACTOBACILLUS RHAMNOSUS GG 1 CAPSULE. PO SCH ×2 (09:47→20:47)
[2020-04-30] MEDS: COLESEVELAM HCL 625 MG TABLET PO SCH ×2 (09:48→20:48)
[2020-04-30] MEDS: FENOFIBRATE,MICRONIZED 134 MG CAPSULE PO SCH (09:48)
[2020-04-30] MEDS: GLIMEPIRIDE 2 MG TABLET. PO SCH (09:49)
[2020-04-30] MEDS: INSULIN LISPRO 300 UNITS/3 ML VIAL. SQ SCH ×6 (09:53→17:18)
[2020-04-30] MEDS: OXYBUTYNIN CHLORIDE 5 MG TABLET PO SCH ×3 (10:01→20:47)
--- NOTE | 2020-04-30 12:27 | RAD ---
EXAM: CHEST AP ONLY INDICATION: Reason: Pneumonia, PUI / Spl. Instructions: / History: . TECHNIQUE: Single view COMPARISON: 04/29/2020 chest x-ray FINDINGS: The heart size is normal. The great vessels appear unremarkable. There is no hilar or mediastinal mass. Lungs again show bilateral patchy airspace opacities which showed slight interval improvement most notably in the right upper lobe in the interval. There is no pleural effusion or pneumothorax. There are no significant osseous abnormalities. IMPRESSION: Slight interval improvement in bilateral pulmonary patchy opacities. Electronically signed by: Steve Carrillo MD (04/30/2020 12:24 PM) [id number]
--- NOTE | 2020-04-30 14:53 | NUR ---
SS following for discharge planning. SS reviewed pt chart and discussed with pt RN. Pt is from home with spouse and is currently on Vapotherm. COVID19 positive. Pt on IV Meropenem and IV Zyvox. Pt received plasma and Remdesivir. SS will continue to follow for discharge planning.
[2020-04-30] MEDS: STERILE WATER for RESP 1,000 ML BAG. INH PRN (19:54)
[2020-04-30] MEDS: REMDESIVIR 100mg in NORMAL SALINE 250ML X 4 DAYS IV SCH (20:47)
[2020-04-30] MEDS: LISINOPRIL 20 MG TABLET PO SCH (20:47)
[2020-04-30] MEDS: ENOXAPARIN 40 MG/0.4 ML SYRINGE. SQ SCH (20:48)
[2020-04-30] MEDS: INSULIN GLARGINE SYRINGE. SQ SCH (21:00)
[2020-05-01] VITALS (24 sets, daily range): BP systolic 124–161; BP diastolic 58–79
[2020-05-01] MEDS: methylPREDNISolone SOD SUCC PF 40 MG/ML VIAL. IV SCH ×3 (05:18→21:25)
[2020-05-01] MEDS: MEROPENEM 500 MG in IV NORMAL SALINE 50ML 50 ML IV SCH ×4 (05:18→23:34)
[2020-05-01 06:09] LABS: ALBUMIN/GLOBULIN RATIO 0.5 (1.0-1.7); CALCIUM 8.9 mg/dL (8.5-10.1); CREATININE 0.8 mg/dL (0.6-1.0); GFR 70.9; POTASSIUM 4.9 mmol/L (3.5-5.1); TOTAL BILIRUBIN 0.4 mg/dL (0.2-1.0)
--- NOTE | 2020-05-01 07:26 | PDOC ---
Infectious Disease Note Subjective Subjective Doing some better. No gross SOA + cough with occ sputum Denies F/C/S/N/V/D/rash Vital Sign Vital Signs Vital Signs Date Time Temp Pulse Resp B/P (MAP) Pulse Ox O2 Delivery O2 Flow Rate FiO2 05/01/20 06:00 68 16 146/77 (100) Nasal Cannula 40.0 05/01/20 05:08 96 05/01/20 05:00 98.4 98.4 Physical Exam PHYSICAL EXAM CONSTITUTIONAL: She is alert. She is cooperative. She does look a little less fatigued. She is in no acute distress. HEENT: She has normal conjunctivae. Oral cavity, pharynx is dry. NECK: Supple, no JVD. LUNGS: Have some diffuse rhonchi. HEART: S1, S2. ABDOMEN: Obese, soft, no guarding, no rebound. : Xavier EXTREMITIES: Without clubbing, cyanosis or gross edema. Peripheral IV sites are clean. NEUROLOGIC: She is nonfocal, answers questions. PSYCHIATRIC: Affect is appropriate Labs Lab Laboratory Tests Test 04/30/20 20:54 04/30/20 21:13 04/30/20 21:47 05/01/20 05:00 Glucose (Fingerstick) 48 mg/dL (70-99) 67 mg/dL (70-99) 106 mg/dL (70-99) D-Dimer (Sera) 2.81 ug/mlFEU (0.00-0.50) Sodium Level 140 mmol/L (136-145) Potassium Level 4.9 mmol/L (3.5-5.1) Chloride Level 107 mmol/L (98-107) Carbon Dioxide Level 29 mmol/L (21-32) Anion Gap 4 (6-14) Blood Urea Nitrogen 27 mg/dL (7-20) Creatinine 0.8 mg/dL (0.6-1.0) Estimated GFR (Cockcroft-Gault) 70.9 BUN/Creatinine Ratio 34 (6-20) Glucose Level 93 mg/dL (70-99) Calcium Level 8.9 mg/dL (8.5-10.1) Total Bilirubin 0.4 mg/dL (0.2-1.0) Aspartate Amino Transf (AST/SGOT) 31 U/L (15-37) Alanine Aminotransferase (ALT/SGPT) 20 U/L (14-59) Alkaline Phosphatase 43 U/L (46-116) Lactate Dehydrogenase 629 U/L (81-234) Total Protein 6.0 g/dL (6.4-8.2) Albumin 2.0 g/dL (3.4-5.0) Albumin/Globulin Ratio 0.5 (1.0-1.7) Micro CXR IMPRESSION: Slight interval improvement in bilateral pulmonary patchy opacities. Objective Assessment Acute Hypoxic Resp failure - on high flow 40 and 90 % COVID + Leukocytosis - on steroids Abx allergies - Cipro intolerance (upset stomach) Azithromycin - rash Loose stools - some better - had been doing bowel prep for Barium enema Chronic UTI has been on Nitrofurantoin DM Plan Plan of Care Cont Steroids Plasma and Remdesivir 04/29 - d/w nursing Added Tropnon I 04/29 but not done clinically stable -will defer potential need to primary F/u labs and cults Cont Meropenem/Doxy - d/w micro and urine cults neg D/c Zyvox for now Critically ill D/w Nursing PEG VELAZQUEZ MD May 01, 2020 07:26
[2020-05-01] MEDS: INSULIN LISPRO 300 UNITS/3 ML VIAL. SQ SCH ×6 (08:00→16:58)
[2020-05-01] MEDS: PANTOPRAZOLE 40 MG TABLET.DR. PO SCH (08:21)
[2020-05-01] MEDS: OXYBUTYNIN CHLORIDE 5 MG TABLET PO SCH ×3 (08:21→20:38)
[2020-05-01] MEDS: LACTOBACILLUS RHAMNOSUS GG 1 CAPSULE. PO SCH ×2 (08:21→20:38)
[2020-05-01] MEDS: ENOXAPARIN 40 MG/0.4 ML SYRINGE. SQ SCH ×2 (08:21→20:39)
[2020-05-01] MEDS: DOXYCYCLINE HYCLATE 100 MG TABLET PO SCH ×2 (08:21→20:38)
[2020-05-01] MEDS: GLIMEPIRIDE 2 MG TABLET. PO SCH (08:21)
[2020-05-01] MEDS: FENOFIBRATE,MICRONIZED 134 MG CAPSULE PO SCH (08:21)
[2020-05-01] MEDS: metFORMIN 500 MG TABLET PO SCH ×3 (08:29→17:00)
[2020-05-01 08:50] LABS: BASE EXCESS ABG 0 mmol/L (-3-3); HCO3 ABG 24 mmol/L (21-28); PCO2 ABG 38 mmHg (35-46); PO2 ABG 139 mmHg (65-108); SAT O2 ABG 99 % (92-99)
[2020-05-01 08:53] LABS: FIO2 ABG 90
--- NOTE | 2020-05-01 09:55 | NUR ---
SW following. Discussed with RN, pt from home with , on vapo-therm, IV abx. Pt is COVID-19 positive. SW will continue to follow.
[2020-05-01] MEDS: COLESEVELAM HCL 625 MG TABLET PO SCH ×2 (10:03→20:38)
--- NOTE | 2020-05-01 10:29 | PN ---
DATE: 05/01/2020 SUBJECTIVE: The patient is resting, slightly propped up in bed, no apparent distress, awake, alert, seems to be generally comfortable. She is still on Vapotherm with 40 liters of oxygen and FiO2 of 90%, maintaining her oxygen saturation around 96%. PHYSICAL EXAMINATION: GENERAL: When I examined her, she was pale, no jaundice, cyanosis or thyromegaly. No jugular venous distention or limb edema. VITAL SIGNS: Her heart rate was 68, blood pressure was 146/77, temperature was 98.4, respiratory rate was 16, and oxygen saturation was 97% on Vapotherm on 40 liters of oxygen and FiO2 of 90%. HEENT: Showed normocephalic, atraumatic. NECK: Supple. HEART: Showed normal first and second heart sounds. No gallop or murmur. CHEST: Shows central trachea, equal bilateral expansion, air entry, vesicular sounds. I could not really appreciate any crepitation or rhonchi anteriorly. ABDOMEN: Distended, soft, nontender. NEUROLOGIC: She was grossly intact. Her intake was 1800, output was 1475. LABORATORY DATA: As of this morning, her white cell count was 12,600, hemoglobin 11.5, hematocrit 34, MCV 94 and platelet count 219,000. Her serum sodium was 140, potassium 4.6, chloride was 107, bicarbonate 29, anion gap of 4, BUN 27, creatinine 0.8, estimated GFR was 71 mL per minute. Her glucose 93, calcium was 8.9. Total bilirubin, AST, ALT, alkaline phosphatase were normal. Total protein 6, albumin 2. Her D-dimer is up to 2.81. ASSESSMENT: 1. COVID-19 pneumonia. 2. Acute hypoxic respiratory failure. 3. The patient has multiple other medical problems including: A. Hypertension. B. Type 2 diabetes mellitus, seems to be reasonably controlled. C. Hyperlipidemia. D. Overactive bladder. PLAN: To continue with IV antibiotic as recommended by Infectious Disease specialist. Continue with oxygen supplementation and titrate as tolerated. Continue with DVT prophylaxis. Continue GI prophylaxis. The patient was treated with remdesivir and convalescent plasma and she continues to be on steroids. Her insulin was adjusted and her blood sugar seems to be much better controlled. KAILEY FRANK MD DR: SHAWN/radha JOB#: [id number] / [id number]
--- NOTE | 2020-05-01 11:03 | PDOC ---
PULMONARY PROGRESS NOTES DATE: 05/01/20 TIME: 11:01 Subjective Patient reports that she is feeling much better today Reports mild shortness of breath however improved from yesterday, and a productive cough with white sputum Afebrile overnight No other concerns from nursing Vitals Vital Signs Date Time Temp Pulse Resp B/P (MAP) Pulse Ox O2 Delivery O2 Flow Rate FiO2 05/01/20 10:00 75 15 161/78 (105) 97 Nasal Cannula 40.0 05/01/20 08:00 98.2 98.2 Comments visual exam done due to COVID-19 pandemia. no respiratory distress, no skin rash Labs Laboratory Tests Test 04/29/20 12:03 04/29/20 17:15 04/29/20 21:36 04/29/20 23:46 Glucose (Fingerstick) 254 mg/dL (70-99) 155 mg/dL (70-99) 109 mg/dL (70-99) 201 mg/dL (70-99) Test 04/30/20 02:50 04/30/20 09:21 04/30/20 13:38 04/30/20 17:14 White Blood Count 12.6 x10^3/uL (4.0-11.0) Red Blood Count 3.64 x10^6/uL (3.50-5.40) Hemoglobin 11.5 g/dL (12.0-15.5) Hematocrit 34.3 % (36.0-47.0) Mean Corpuscular Volume 94 fL (79-100) Mean Corpuscular Hemoglobin 32 pg (25-35) Mean Corpuscular Hemoglobin Concent 34 g/dL (31-37) Red Cell Distribution Width 12.9 % (11.5-14.5) Platelet Count 219 x10^3/uL (140-400) D-Dimer (Sera) 2.46 ug/mlFEU (0.00-0.50) Sodium Level 140 mmol/L (136-145) Potassium Level 4.6 mmol/L (3.5-5.1) Chloride Level 108 mmol/L (98-107) Carbon Dioxide Level 26 mmol/L (21-32) Anion Gap 6 (6-14) Blood Urea Nitrogen 26 mg/dL (7-20) Creatinine 0.9 mg/dL (0.6-1.0) Estimated GFR (Cockcroft-Gault) 61.9 BUN/Creatinine Ratio 29 (6-20) Glucose Level 159 mg/dL (70-99) Calcium Level 8.6 mg/dL (8.5-10.1) Total Bilirubin 0.3 mg/dL (0.2-1.0) Aspartate Amino Transf (AST/SGOT) 28 U/L (15-37) Alanine Aminotransferase (ALT/SGPT) 19 U/L (14-59) Alkaline Phosphatase 36 U/L (46-116) Total Protein 6.0 g/dL (6.4-8.2) Albumin 2.0 g/dL (3.4-5.0) Albumin/Globulin Ratio 0.5 (1.0-1.7) Glucose (Fingerstick) 164 mg/dL (70-99) 279 mg/dL (70-99) 141 mg/dL (70-99) Test 04/30/20 20:54 04/30/20 21:13 04/30/20 21:47 05/01/20 05:00 Glucose (Fingerstick) 48 mg/dL (70-99) 67 mg/dL (70-99) 106 mg/dL (70-99) D-Dimer (Sera) 2.81 ug/mlFEU (0.00-0.50) Sodium Level 140 mmol/L (136-145) Potassium Level 4.9 mmol/L (3.5-5.1) Chloride Level 107 mmol/L (98-107) Carbon Dioxide Level 29 mmol/L (21-32) Anion Gap 4 (6-14) Blood Urea Nitrogen 27 mg/dL (7-20) Creatinine 0.8 mg/dL (0.6-1.0) Estimated GFR (Cockcroft-Gault) 70.9 BUN/Creatinine Ratio 34 (6-20) Glucose Level 93 mg/dL (70-99) Calcium Level 8.9 mg/dL (8.5-10.1) Total Bilirubin 0.4 mg/dL (0.2-1.0) Aspartate Amino Transf (AST/SGOT) 31 U/L (15-37) Alanine Aminotransferase (ALT/SGPT) 20 U/L (14-59) Alkaline Phosphatase 43 U/L (46-116) Lactate Dehydrogenase 629 U/L (81-234) Total Protein 6.0 g/dL (6.4-8.2) Albumin 2.0 g/dL (3.4-5.0) Albumin/Globulin Ratio 0.5 (1.0-1.7) Test 05/01/20 08:15 05/01/20 08:38 O2 Saturation 99 % (92-99) Arterial Blood pH 7.42 (7.35-7.45) Arterial Blood pCO2 at Patient Temp 38 mmHg (35-46) Arterial Blood pO2 at Patient Temp 139 mmHg (65-108) Arterial Blood HCO3 24 mmol/L (21-28) Arterial Blood Base Excess 0 mmol/L (-3-3) FiO2 90 Glucose (Fingerstick) 116 mg/dL (70-99) Laboratory Tests Test 04/30/20 13:38 04/30/20 17:14 04/30/20 20:54 04/30/20 21:13 Glucose (Fingerstick) 279 mg/dL (70-99) 141 mg/dL (70-99) 48 mg/dL (70-99) 67 mg/dL (70-99) Test 04/30/20 21:47 05/01/20 05:00 05/01/20 08:15 05/01/20 08:38 Glucose (Fingerstick) 106 mg/dL (70-99) 116 mg/dL (70-99) D-Dimer (Sera) 2.81 ug/mlFEU (0.00-0.50) Sodium Level 140 mmol/L (136-145) Potassium Level 4.9 mmol/L (3.5-5.1) Chloride Level 107 mmol/L (98-107) Carbon Dioxide Level 29 mmol/L (21-32) Anion Gap 4 (6-14) Blood Urea Nitrogen 27 mg/dL (7-20) Creatinine 0.8 mg/dL (0.6-1.0) Estimated GFR (Cockcroft-Gault) 70.9 BUN/Creatinine Ratio 34 (6-20) Glucose Level 93 mg/dL (70-99) Calcium Level 8.9 mg/dL (8.5-10.1) Total Bilirubin 0.4 mg/dL (0.2-1.0) Aspartate Amino Transf (AST/SGOT) 31 U/L (15-37) Alanine Aminotransferase (ALT/SGPT) 20 U/L (14-59) Alkaline Phosphatase 43 U/L (46-116) Lactate Dehydrogenase 629 U/L (81-234) Total Protein 6.0 g/dL (6.4-8.2) Albumin 2.0 g/dL (3.4-5.0) Albumin/Globulin Ratio 0.5 (1.0-1.7) O2 Saturation 99 % (92-99) Arterial Blood pH 7.42 (7.35-7.45) Arterial Blood pCO2 at Patient Temp 38 mmHg (35-46) Arterial Blood pO2 at Patient Temp 139 mmHg (65-108) Arterial Blood HCO3 24 mmol/L (21-28) Arterial Blood Base Excess 0 mmol/L (-3-3) FiO2 90 Medications Active Scripts Medications Dose Route/Sig Max Daily Dose Days Date Category Lantus Solostar (Insulin Glargine,Hum.rec.anlog) 100 Unit/1 Ml Insuln.pen 35 Unit SQ QHS 04/28/20 Reported Welchol (Colesevelam Hcl) 625 Mg Tablet 3 Tab PO BID 30 04/28/20 Reported Proair Hfa (Albuterol Sulfate) 8.5 Gm Hfa.aer.ad 1 Puff INH PRN Q6HRS PRN 04/28/20 Reported Oxybutynin Chloride 5 Mg Tablet 5 Mg PO TID 04/28/20 Reported Lisinopril 20 Mg Tablet 1 Tab PO QHS 04/28/20 Reported Fenofibrate 54 Mg Tablet 145 Mg PO DAILY 05/27/14 Reported Metformin Hcl 1,000 Mg Tablet 1 Tab PO BID 05/27/14 Reported Glimepiride 2 Mg Tablet 1 Tab PO DAILY 05/27/14 Reported Comments CXR IMPRESSION: Diffuse bilateral parenchymal airspace opacities may represent consolidative process such as pneumonia. Impression . IMPRESSION: 1. Acute hypoxemic respiratory failure. 2. COVID-19 pneumonia. 3. Possible bacterial pneumonia. 4. Abnormal CT chest, compatible with COVID-19. 5. Chronic urinary tract infection. 6. Diabetes. Plan . PLAN: Continue supplemental oxygen, currently on Vapotherm 40 L and 90% Chest x-ray reviewed, bilateral pulmonary infiltrates consistent with COVID-19 infection Status post remdesivir/Convalescent serum. Continue IV steroids . Follow Infectious Disease recommendations. Follow D-dimer. 2.8 on 05/01 High-dose DVT prophylaxis/GI prophylaxis Follow clinical course Discussed with RN/RT SAM KANG MD May 01, 2020 11:03
[2020-05-01] MEDS ORDERED: ONDANSETRON PF 4 MG/2 ML VIAL. IVP PRN (13:00)
[2020-05-01] MEDS: STERILE WATER for RESP 1,000 ML BAG. INH PRN (16:47)
[2020-05-01] MEDS: REMDESIVIR 100mg in NORMAL SALINE 250ML X 4 DAYS IV SCH (20:39)
[2020-05-01] MEDS: INSULIN GLARGINE SYRINGE. SQ SCH (20:39)
[2020-05-01] MEDS: LISINOPRIL 20 MG TABLET PO SCH (20:39)
[2020-05-02] VITALS (24 sets, daily range): BP systolic 127–166; BP diastolic 56–86
[2020-05-02] MEDS: STERILE WATER for RESP 1,000 ML BAG. INH PRN ×2 (04:09→17:54)
[2020-05-02 04:37] LABS: HEMATOCRIT 34.1 % (36.0-47.0); HEMOGLOBIN 11.7 g/dL (12.0-15.5); RED BLOOD COUNT 3.63 x10^6/uL (3.50-5.40); RED CELL DISTRIBUTION WIDTH 12.8 % (11.5-14.5); WHITE BLOOD COUNT 12.6 x10^3/uL (4.0-11.0)
[2020-05-02 04:54] LABS: ALBUMIN/GLOBULIN RATIO 0.5 (1.0-1.7); CALCIUM 8.6 mg/dL (8.5-10.1); CREATININE 0.8 mg/dL (0.6-1.0); GFR 70.9; POTASSIUM 5.1 mmol/L (3.5-5.1); TOTAL BILIRUBIN 0.4 mg/dL (0.2-1.0)
[2020-05-02] MEDS: methylPREDNISolone SOD SUCC PF 40 MG/ML VIAL. IV SCH ×3 (05:26→21:56)
[2020-05-02] MEDS: MEROPENEM 500 MG in IV NORMAL SALINE 50ML 50 ML IV SCH ×3 (05:26→17:40)
--- NOTE | 2020-05-02 07:22 | PDOC ---
Infectious Disease Note Subjective Subjective Doing some better. No gross SOA + cough with occ sputum Denies F/C/S/N/V/D/rash Vital Sign Vital Signs Vital Signs Date Time Temp Pulse Resp B/P (MAP) Pulse Ox O2 Delivery O2 Flow Rate FiO2 05/02/20 07:00 60 14 140/70 (93) 97 Vapotherm 40.0 05/02/20 04:00 98.2 98.2 Physical Exam PHYSICAL EXAM CONSTITUTIONAL: She is alert. She is cooperative. She does look a little less fatigued. She is in no acute distress. HEENT: She has normal conjunctivae. Oral cavity, pharynx is dry.- some thrush NECK: Supple, no JVD. LUNGS: Have some diffuse rhonchi. HEART: S1, S2. ABDOMEN: Obese, soft, no guarding, no rebound. : Xavier EXTREMITIES: Without clubbing, cyanosis or gross edema. Peripheral IV sites are clean. NEUROLOGIC: She is nonfocal, answers questions. PSYCHIATRIC: Affect is appropriate Labs Lab Laboratory Tests Test 05/01/20 08:15 05/01/20 08:38 05/01/20 11:40 05/01/20 16:51 O2 Saturation 99 % (92-99) Arterial Blood pH 7.42 (7.35-7.45) Arterial Blood pCO2 at Patient Temp 38 mmHg (35-46) Arterial Blood pO2 at Patient Temp 139 mmHg (65-108) Arterial Blood HCO3 24 mmol/L (21-28) Arterial Blood Base Excess 0 mmol/L (-3-3) FiO2 90 Glucose (Fingerstick) 116 mg/dL (70-99) 202 mg/dL (70-99) 69 mg/dL (70-99) Test 05/01/20 20:14 05/02/20 04:20 Glucose (Fingerstick) 134 mg/dL (70-99) White Blood Count 12.6 x10^3/uL (4.0-11.0) Red Blood Count 3.63 x10^6/uL (3.50-5.40) Hemoglobin 11.7 g/dL (12.0-15.5) Hematocrit 34.1 % (36.0-47.0) Mean Corpuscular Volume 94 fL (79-100) Mean Corpuscular Hemoglobin 32 pg (25-35) Mean Corpuscular Hemoglobin Concent 34 g/dL (31-37) Red Cell Distribution Width 12.8 % (11.5-14.5) Platelet Count 221 x10^3/uL (140-400) D-Dimer (Sera) 2.29 ug/mlFEU (0.00-0.50) Sodium Level 137 mmol/L (136-145) Potassium Level 5.1 mmol/L (3.5-5.1) Chloride Level 104 mmol/L (98-107) Carbon Dioxide Level 30 mmol/L (21-32) Anion Gap 3 (6-14) Blood Urea Nitrogen 30 mg/dL (7-20) Creatinine 0.8 mg/dL (0.6-1.0) Estimated GFR (Cockcroft-Gault) 70.9 BUN/Creatinine Ratio 38 (6-20) Glucose Level 227 mg/dL (70-99) Calcium Level 8.6 mg/dL (8.5-10.1) Total Bilirubin 0.4 mg/dL (0.2-1.0) Aspartate Amino Transf (AST/SGOT) 21 U/L (15-37) Alanine Aminotransferase (ALT/SGPT) 21 U/L (14-59) Alkaline Phosphatase 39 U/L (46-116) Total Protein 6.0 g/dL (6.4-8.2) Albumin 2.0 g/dL (3.4-5.0) Albumin/Globulin Ratio 0.5 (1.0-1.7) Micro CXR IMPRESSION: Slight interval improvement in bilateral pulmonary patchy opacities. Objective Assessment Thrush Acute Hypoxic Resp failure - some improved on high flow 40 and 70 % down for 90% 05/01 COVID + Leukocytosis - on steroids Abx allergies - Cipro intolerance (upset stomach) Azithromycin - rash Loose stools - some better - had been doing bowel prep for Barium enema Chronic UTI has been on Nitrofurantoin urine cult - neg DM Plan Plan of Care Add Nystatin today 05/02 Cont Steroids Plasma and Remdesivir 04/29 - d/w nursing Added Tropnon I 04/29 but not done clinically stable -will defer potential need to primary F/u labs and cults Cont Meropenem/Doxy - d/w micro and urine cults neg - wean soon D/c Zyvox for now Critically ill D/w Nursing PEG VELAZQUEZ MD May 02, 2020 07:22
[2020-05-02] MEDS: LACTOBACILLUS RHAMNOSUS GG 1 CAPSULE. PO SCH ×2 (08:46→21:57)
[2020-05-02] MEDS: OXYBUTYNIN CHLORIDE 5 MG TABLET PO SCH ×3 (08:46→21:56)
[2020-05-02] MEDS: GLIMEPIRIDE 2 MG TABLET. PO SCH (08:46)
[2020-05-02] MEDS: PANTOPRAZOLE 40 MG TABLET.DR. PO SCH (08:46)
[2020-05-02] MEDS: DOXYCYCLINE HYCLATE 100 MG TABLET PO SCH ×2 (08:46→21:57)
[2020-05-02] MEDS: FENOFIBRATE,MICRONIZED 134 MG CAPSULE PO SCH (08:47)
[2020-05-02] MEDS: metFORMIN 500 MG TABLET PO SCH ×2 (08:47→17:42)
[2020-05-02] MEDS: COLESEVELAM HCL 625 MG TABLET PO SCH ×2 (08:47→21:57)
[2020-05-02] MEDS: ENOXAPARIN 40 MG/0.4 ML SYRINGE. SQ SCH ×2 (08:47→21:56)
[2020-05-02] MEDS: INSULIN LISPRO 300 UNITS/3 ML VIAL. SQ SCH ×6 (08:48→17:00)
[2020-05-02] MEDS: NYSTATIN 100,000 UNITS/ML 5 ML ORAL.SUSP. SWSW SCH ×4 (09:38→21:56)
--- NOTE | 2020-05-02 10:38 | PDOC ---
PULMONARY PROGRESS NOTES DATE: 05/02/20 TIME: 10:36 Subjective no new issues No other concerns from nursing Vitals Vital Signs Date Time Temp Pulse Resp B/P (MAP) Pulse Ox O2 Delivery O2 Flow Rate FiO2 05/02/20 10:00 67 16 140/68 (92) 97 Vapotherm 40.0 05/02/20 08:00 98.4 98.4 Comments visual exam done due to COVID-19 pandemia. no respiratory distress, no skin rash Labs Laboratory Tests Test 04/30/20 13:38 04/30/20 17:14 04/30/20 20:54 04/30/20 21:13 Glucose (Fingerstick) 279 mg/dL (70-99) 141 mg/dL (70-99) 48 mg/dL (70-99) 67 mg/dL (70-99) Test 04/30/20 21:47 05/01/20 05:00 05/01/20 08:15 05/01/20 08:38 Glucose (Fingerstick) 106 mg/dL (70-99) 116 mg/dL (70-99) D-Dimer (Sera) 2.81 ug/mlFEU (0.00-0.50) Sodium Level 140 mmol/L (136-145) Potassium Level 4.9 mmol/L (3.5-5.1) Chloride Level 107 mmol/L (98-107) Carbon Dioxide Level 29 mmol/L (21-32) Anion Gap 4 (6-14) Blood Urea Nitrogen 27 mg/dL (7-20) Creatinine 0.8 mg/dL (0.6-1.0) Estimated GFR (Cockcroft-Gault) 70.9 BUN/Creatinine Ratio 34 (6-20) Glucose Level 93 mg/dL (70-99) Calcium Level 8.9 mg/dL (8.5-10.1) Total Bilirubin 0.4 mg/dL (0.2-1.0) Aspartate Amino Transf (AST/SGOT) 31 U/L (15-37) Alanine Aminotransferase (ALT/SGPT) 20 U/L (14-59) Alkaline Phosphatase 43 U/L (46-116) Lactate Dehydrogenase 629 U/L (81-234) Total Protein 6.0 g/dL (6.4-8.2) Albumin 2.0 g/dL (3.4-5.0) Albumin/Globulin Ratio 0.5 (1.0-1.7) O2 Saturation 99 % (92-99) Arterial Blood pH 7.42 (7.35-7.45) Arterial Blood pCO2 at Patient Temp 38 mmHg (35-46) Arterial Blood pO2 at Patient Temp 139 mmHg (65-108) Arterial Blood HCO3 24 mmol/L (21-28) Arterial Blood Base Excess 0 mmol/L (-3-3) FiO2 90 Test 05/01/20 11:40 05/01/20 16:51 05/01/20 20:14 05/02/20 04:20 Glucose (Fingerstick) 202 mg/dL (70-99) 69 mg/dL (70-99) 134 mg/dL (70-99) White Blood Count 12.6 x10^3/uL (4.0-11.0) Red Blood Count 3.63 x10^6/uL (3.50-5.40) Hemoglobin 11.7 g/dL (12.0-15.5) Hematocrit 34.1 % (36.0-47.0) Mean Corpuscular Volume 94 fL (79-100) Mean Corpuscular Hemoglobin 32 pg (25-35) Mean Corpuscular Hemoglobin Concent 34 g/dL (31-37) Red Cell Distribution Width 12.8 % (11.5-14.5) Platelet Count 221 x10^3/uL (140-400) D-Dimer (Sera) 2.29 ug/mlFEU (0.00-0.50) Sodium Level 137 mmol/L (136-145) Potassium Level 5.1 mmol/L (3.5-5.1) Chloride Level 104 mmol/L (98-107) Carbon Dioxide Level 30 mmol/L (21-32) Anion Gap 3 (6-14) Blood Urea Nitrogen 30 mg/dL (7-20) Creatinine 0.8 mg/dL (0.6-1.0) Estimated GFR (Cockcroft-Gault) 70.9 BUN/Creatinine Ratio 38 (6-20) Glucose Level 227 mg/dL (70-99) Calcium Level 8.6 mg/dL (8.5-10.1) Total Bilirubin 0.4 mg/dL (0.2-1.0) Aspartate Amino Transf (AST/SGOT) 21 U/L (15-37) Alanine Aminotransferase (ALT/SGPT) 21 U/L (14-59) Alkaline Phosphatase 39 U/L (46-116) Total Protein 6.0 g/dL (6.4-8.2) Albumin 2.0 g/dL (3.4-5.0) Albumin/Globulin Ratio 0.5 (1.0-1.7) Test 05/02/20 08:32 Glucose (Fingerstick) 198 mg/dL (70-99) Laboratory Tests Test 05/01/20 11:40 05/01/20 16:51 05/01/20 20:14 05/02/20 04:20 Glucose (Fingerstick) 202 mg/dL (70-99) 69 mg/dL (70-99) 134 mg/dL (70-99) White Blood Count 12.6 x10^3/uL (4.0-11.0) Red Blood Count 3.63 x10^6/uL (3.50-5.40) Hemoglobin 11.7 g/dL (12.0-15.5) Hematocrit 34.1 % (36.0-47.0) Mean Corpuscular Volume 94 fL (79-100) Mean Corpuscular Hemoglobin 32 pg (25-35) Mean Corpuscular Hemoglobin Concent 34 g/dL (31-37) Red Cell Distribution Width 12.8 % (11.5-14.5) Platelet Count 221 x10^3/uL (140-400) D-Dimer (Sera) 2.29 ug/mlFEU (0.00-0.50) Sodium Level 137 mmol/L (136-145) Potassium Level 5.1 mmol/L (3.5-5.1) Chloride Level 104 mmol/L (98-107) Carbon Dioxide Level 30 mmol/L (21-32) Anion Gap 3 (6-14) Blood Urea Nitrogen 30 mg/dL (7-20) Creatinine 0.8 mg/dL (0.6-1.0) Estimated GFR (Cockcroft-Gault) 70.9 BUN/Creatinine Ratio 38 (6-20) Glucose Level 227 mg/dL (70-99) Calcium Level 8.6 mg/dL (8.5-10.1) Total Bilirubin 0.4 mg/dL (0.2-1.0) Aspartate Amino Transf (AST/SGOT) 21 U/L (15-37) Alanine Aminotransferase (ALT/SGPT) 21 U/L (14-59) Alkaline Phosphatase 39 U/L (46-116) Total Protein 6.0 g/dL (6.4-8.2) Albumin 2.0 g/dL (3.4-5.0) Albumin/Globulin Ratio 0.5 (1.0-1.7) Test 05/02/20 08:32 Glucose (Fingerstick) 198 mg/dL (70-99) Medications Active Scripts Medications Dose Route/Sig Max Daily Dose Days Date Category Lantus Solostar (Insulin Glargine,Hum.rec.anlog) 100 Unit/1 Ml Insuln.pen 35 Unit SQ QHS 04/28/20 Reported Welchol (Colesevelam Hcl) 625 Mg Tablet 3 Tab PO BID 30 04/28/20 Reported Proair Hfa (Albuterol Sulfate) 8.5 Gm Hfa.aer.ad 1 Puff INH PRN Q6HRS PRN 04/28/20 Reported Oxybutynin Chloride 5 Mg Tablet 5 Mg PO TID 04/28/20 Reported Lisinopril 20 Mg Tablet 1 Tab PO QHS 04/28/20 Reported Fenofibrate 54 Mg Tablet 145 Mg PO DAILY 05/27/14 Reported Metformin Hcl 1,000 Mg Tablet 1 Tab PO BID 05/27/14 Reported Glimepiride 2 Mg Tablet 1 Tab PO DAILY 05/27/14 Reported Comments CXR IMPRESSION: Diffuse bilateral parenchymal airspace opacities may represent consolidative process such as pneumonia. Impression . IMPRESSION: 1. Acute hypoxemic respiratory failure. 2. COVID-19 pneumonia. 3. Possible bacterial pneumonia. 4. Abnormal CT chest, compatible with COVID-19. 5. Chronic urinary tract infection. 6. Diabetes. Plan . PLAN: Continue supplemental oxygen, currently on Vapotherm 40 L and 70% Chest x-ray reviewed, bilateral pulmonary infiltrates consistent with COVID-19 infection Status post remdesivir/Convalescent serum. Continue IV steroids with taper Follow Infectious Disease recommendations. Follow D-dimer. 2.8 on 05/01 High-dose DVT prophylaxis/GI prophylaxis Follow clinical course Discussed with RN/RT SAM KANG MD May 02, 2020 10:38
--- NOTE | 2020-05-02 13:20 | PN ---
DATE: 05/02/2020 SUBJECTIVE: The patient is resting, slightly propped up in bed, no apparent distress, awake, alert. On questioning her, she denied any complaint. The nursing staff did not voice any concerns. States that she had an uneventful night. She continuous to be on Vapotherm at 40 liters and FiO2 is down to 70%, maintaining her oxygen saturation at 95%. OBJECTIVE: GENERAL: When I examined her this morning, she looked well and was clearly in no apparent respiratory distress, slightly pale. No jaundice, cyanosis or thyromegaly. No jugular venous distention. No lower limb edema. VITAL SIGNS: Her heart rate was 60, blood pressure was 140/70, temperature 98.2, respiratory rate was 14 and oxygen saturation was 97% on 40 liters and FiO2 of 70%. HEENT: Showed normocephalic, atraumatic. NECK: Supple. HEART: Normal first and second heart sounds. No gallop, rub or murmur. CHEST: Clear to auscultation. No crepitation or rhonchi. ABDOMEN: Distended, soft, nontender. NEUROLOGIC: She is awake, alert, responding appropriately. All cranial nerves are intact. She moves extremities without difficulty. Her intake over the last 24 hours 1700, output was 1950. LABORATORY DATA: As of this morning, her serum sodium was 137, potassium 5.1, chloride 104, bicarbonate 30, anion gap of 3, BUN 30, creatinine 0.8, estimated GFR was 70 mL per minute. Her glucose was 127, calcium was 8.6. Total bilirubin, AST, ALT, alkaline phosphatase were normal. Total protein was 6, albumin was 2. Her white cell count was 12,600, hemoglobin 11.7, hematocrit 34, MCV 94 and platelet count 221,000. Her D-dimer is 2.29 and her blood gases as of yesterday showed a pH of 7.42, pCO2 of 38, pO2 of 139, oxygen saturation was 99% on FiO2 of 70%. ASSESSMENT: 1. COVID-19 pneumonia. 2. Acute hypoxic respiratory failure. 3. The patient has multiple other medical problems including: A. Hypertension. D. Type 2 diabetes mellitus, seems to be reasonably controlled. C. Hyperlipidemia. D. Overactive bladder. PLAN: Continue with IV antibiotic as recommended by Infectious Disease specialist. Continue oxygen supplementation and titrate as tolerated. Continue DVT prophylaxis. Continue GI prophylaxis. The patient has received treatment with remdesivir and convalescent plasma and she continues to be on steroids. Her insulin adjusted and her blood sugar seems to be much better controlled. KAILEY FRANK MD DR: SHAWN/radha JOB#: [id number] / [id number]
--- NOTE | 2020-05-02 13:36 | NUR ---
SS following up with discharge planning. SS reviewed pt chart and discussed with pt RN. Pt is currently on Vapotherm. COVID19 positive. Pt on IV meropenem. SS will continue to follow for discharge planning.
[2020-05-02] MEDS: INSULIN GLARGINE SYRINGE. SQ SCH (21:00)
[2020-05-02] MEDS: LISINOPRIL 20 MG TABLET PO SCH (21:57)
[2020-05-02] MEDS: REMDESIVIR 100mg in NORMAL SALINE 250ML X 4 DAYS IV SCH (21:58)
[2020-05-03] VITALS (24 sets, daily range): BP systolic 129–169; BP diastolic 61–79
[2020-05-03] MEDS: MEROPENEM 500 MG in IV NORMAL SALINE 50ML 50 ML IV SCH ×2 (00:54→06:09)
[2020-05-03] MEDS: methylPREDNISolone SOD SUCC PF 40 MG/ML VIAL. IV SCH ×3 (06:09→21:12)
--- NOTE | 2020-05-03 06:59 | PDOC ---
Infectious Disease Note Subjective Subjective Doing some better. No gross SOA. Feels stronger + but less cough with occ sputum Denies F/C/S/N/V/D/rash Better Vital Sign Vital Signs Vital Signs Date Time Temp Pulse Resp B/P (MAP) Pulse Ox O2 Delivery O2 Flow Rate FiO2 05/03/20 06:00 60 17 138/65 (89) 97 Vapotherm 40.0 05/03/20 04:00 98.6 98.6 Physical Exam PHYSICAL EXAM CONSTITUTIONAL: She is alert. She is cooperative. She does better. She is in no acute distress. HEENT: She has normal conjunctivae. Oral cavity, pharynx is dry.- some thrush - better NECK: Supple, no JVD. LUNGS: Have some diffuse rhonchi. HEART: S1, S2. ABDOMEN: Obese, soft, no guarding, no rebound. : Xavier EXTREMITIES: Without clubbing, cyanosis or gross edema. Peripheral IV sites are clean. NEUROLOGIC: She is nonfocal, answers questions. PSYCHIATRIC: Affect is appropriate Labs Lab Laboratory Tests Test 05/02/20 08:32 05/02/20 11:48 05/02/20 17:45 Glucose (Fingerstick) 198 mg/dL (70-99) 223 mg/dL (70-99) 74 mg/dL (70-99) Micro CXR IMPRESSION: Slight interval improvement in bilateral pulmonary patchy opacities. Objective Assessment Thrush - better Acute Hypoxic Resp failure - some improved on high flow 40 and 70 % down for 90% 05/01 COVID + Leukocytosis - on steroids Abx allergies - Cipro intolerance (upset stomach) Azithromycin - rash Loose stools - some better - had been doing bowel prep for Barium enema Chronic UTI has been on Nitrofurantoin urine cult - neg DM Plan Plan of Care Started Nystatin today 05/02 Cont Steroids Plasma and Remdesivir 04/29 - d/w nursing F/u labs and cults Discont Meropenem/Doxy today 05/03- d/w micro and urine cults neg - wean soon D/c Zyvox for now Critically ill D/w Nursing PEG VELAZQUEZ MD May 03, 2020 06:59
[2020-05-03] MEDS: INSULIN LISPRO 300 UNITS/3 ML VIAL. SQ SCH ×6 (08:40→16:59)
[2020-05-03] MEDS: ENOXAPARIN 40 MG/0.4 ML SYRINGE. SQ SCH ×2 (08:42→21:13)
[2020-05-03] MEDS: NYSTATIN 100,000 UNITS/ML 5 ML ORAL.SUSP. SWSW SCH ×4 (08:42→21:12)
[2020-05-03] MEDS: COLESEVELAM HCL 625 MG TABLET PO SCH ×2 (08:43→21:14)
[2020-05-03] MEDS: metFORMIN 500 MG TABLET PO SCH ×2 (08:43→16:54)
[2020-05-03] MEDS: PANTOPRAZOLE 40 MG TABLET.DR. PO SCH (08:43)
[2020-05-03] MEDS: GLIMEPIRIDE 2 MG TABLET. PO SCH (08:43)
[2020-05-03] MEDS: OXYBUTYNIN CHLORIDE 5 MG TABLET PO SCH ×3 (08:43→21:13)
[2020-05-03] MEDS: LACTOBACILLUS RHAMNOSUS GG 1 CAPSULE. PO SCH ×2 (08:43→21:13)
[2020-05-03] MEDS: FENOFIBRATE,MICRONIZED 134 MG CAPSULE PO SCH (08:43)
[2020-05-03] MEDS: STERILE WATER for RESP 1,000 ML BAG. INH PRN (09:09)
--- NOTE | 2020-05-03 10:27 | PN ---
DATE: 05/03/2020 SUBJECTIVE: The patient is resting, slightly propped up in bed, sleeping comfortably, in no apparent distress. She continued to be on Vapotherm at 40 liters on FiO2 of 70%, maintaining her oxygen saturation at 97%. Denied any chest pain, shortness of breath, cough or phlegm. She is eating and drinking and generally seems to be stable. PHYSICAL EXAMINATION: GENERAL: When I examined her, she looked pale, but no jaundice, cyanosis or thyromegaly. No jugular venous distension. No lower limb edema. VITAL SIGNS: Her heart rate was 60, blood pressure was 138/65, temperature 98.6, respiratory rate was 17 and oxygen saturation was 97% on Vapotherm. HEAD, EYES, EARS, NOSE, AND THROAT: Showed normocephalic, atraumatic. NECK: Supple. HEART: Showed normal first and second heart sounds. No gallop, rub or murmur. CHEST: Clear to auscultation. No crepitation or rhonchi anteriorly. ABDOMEN: Distended, soft, nontender. NEUROLOGIC: She is awake, alert, responding appropriately. All her cranial nerves are intact. She moves extremities without difficulty, though she is mostly bedbound. Her intake over the last 24 hours was 1040, output was 1925. LABORATORY DATA: She has no lab work done this morning. As of yesterday, her white cell count was 12,600, hemoglobin 11.7, hematocrit 34, MCV 94 and platelet count 221,000. Her serum sodium was 137, potassium 5.1, chloride 104, bicarbonate 30, anion gap of 3, BUN 30, creatinine 0.8. Blood sugar seems to be reasonably controlled. Her liver enzymes are normal. ASSESSMENT: 1. COVID-19 pneumonia. 2. Acute hypoxic respiratory failure. 3. The patient has multiple other medical problems including: A. Hypertension, seems to be reasonably controlled. B. Type 2 diabetes mellitus, seems to be also reasonably controlled. C. Hyperlipidemia. D. Overactive bladder. PLAN: To continue IV antibiotic as recommended by Infectious Disease specialist. Continue with oxygen supplementation titrated down as needed. Continue DVT prophylaxis. Continue GI prophylaxis. She has received treatment with remdesivir and convalescent plasma. She continues to be on steroids. Her insulin was adjusted and her blood sugar seems to be much better controlled. KAILEY FRANK MD DR: Hernandez JOB#: [id number] / [id number]
--- NOTE | 2020-05-03 10:40 | PDOC ---
PULMONARY PROGRESS NOTES DATE: 05/03/20 TIME: 10:38 Subjective no new issues No other concerns from nursing Vitals Vital Signs Date Time Temp Pulse Resp B/P (MAP) Pulse Ox O2 Delivery O2 Flow Rate FiO2 05/03/20 09:10 94 VAPO THERM 30.0 05/03/20 06:00 60 17 138/65 (89) 05/03/20 04:00 98.6 98.6 Comments visual exam done due to COVID-19 pandemia. no respiratory distress, no skin rash Labs Laboratory Tests Test 05/01/20 11:40 05/01/20 16:51 05/01/20 20:14 05/02/20 04:20 Glucose (Fingerstick) 202 mg/dL (70-99) 69 mg/dL (70-99) 134 mg/dL (70-99) White Blood Count 12.6 x10^3/uL (4.0-11.0) Red Blood Count 3.63 x10^6/uL (3.50-5.40) Hemoglobin 11.7 g/dL (12.0-15.5) Hematocrit 34.1 % (36.0-47.0) Mean Corpuscular Volume 94 fL (79-100) Mean Corpuscular Hemoglobin 32 pg (25-35) Mean Corpuscular Hemoglobin Concent 34 g/dL (31-37) Red Cell Distribution Width 12.8 % (11.5-14.5) Platelet Count 221 x10^3/uL (140-400) D-Dimer (Sera) 2.29 ug/mlFEU (0.00-0.50) Sodium Level 137 mmol/L (136-145) Potassium Level 5.1 mmol/L (3.5-5.1) Chloride Level 104 mmol/L (98-107) Carbon Dioxide Level 30 mmol/L (21-32) Anion Gap 3 (6-14) Blood Urea Nitrogen 30 mg/dL (7-20) Creatinine 0.8 mg/dL (0.6-1.0) Estimated GFR (Cockcroft-Gault) 70.9 BUN/Creatinine Ratio 38 (6-20) Glucose Level 227 mg/dL (70-99) Calcium Level 8.6 mg/dL (8.5-10.1) Total Bilirubin 0.4 mg/dL (0.2-1.0) Aspartate Amino Transf (AST/SGOT) 21 U/L (15-37) Alanine Aminotransferase (ALT/SGPT) 21 U/L (14-59) Alkaline Phosphatase 39 U/L (46-116) Total Protein 6.0 g/dL (6.4-8.2) Albumin 2.0 g/dL (3.4-5.0) Albumin/Globulin Ratio 0.5 (1.0-1.7) Test 05/02/20 08:32 05/02/20 11:48 05/02/20 17:45 05/03/20 08:07 Glucose (Fingerstick) 198 mg/dL (70-99) 223 mg/dL (70-99) 74 mg/dL (70-99) 182 mg/dL (70-99) Laboratory Tests Test 05/02/20 11:48 05/02/20 17:45 05/03/20 08:07 Glucose (Fingerstick) 223 mg/dL (70-99) 74 mg/dL (70-99) 182 mg/dL (70-99) Medications Active Scripts Medications Dose Route/Sig Max Daily Dose Days Date Category Lantus Solostar (Insulin Glargine,Hum.rec.anlog) 100 Unit/1 Ml Insuln.pen 35 Unit SQ QHS 04/28/20 Reported Welchol (Colesevelam Hcl) 625 Mg Tablet 3 Tab PO BID 30 04/28/20 Reported Proair Hfa (Albuterol Sulfate) 8.5 Gm Hfa.aer.ad 1 Puff INH PRN Q6HRS PRN 04/28/20 Reported Oxybutynin Chloride 5 Mg Tablet 5 Mg PO TID 04/28/20 Reported Lisinopril 20 Mg Tablet 1 Tab PO QHS 04/28/20 Reported Fenofibrate 54 Mg Tablet 145 Mg PO DAILY 05/27/14 Reported Metformin Hcl 1,000 Mg Tablet 1 Tab PO BID 05/27/14 Reported Glimepiride 2 Mg Tablet 1 Tab PO DAILY 05/27/14 Reported Comments CXR IMPRESSION: Diffuse bilateral parenchymal airspace opacities may represent consolidative process such as pneumonia. Impression . IMPRESSION: 1. Acute hypoxemic respiratory failure.,improving 2. COVID-19 pneumonia. 3. Possible bacterial pneumonia. 4. Abnormal CT chest, compatible with COVID-19. 5. Chronic urinary tract infection. 6. Diabetes. Plan . PLAN: Continue supplemental oxygen, currently on Vapotherm 30 L and 50%, improving. will try off Vapotherm Chest x-ray reviewed, bilateral pulmonary infiltrates consistent with COVID-19 infection Status post remdesivir/Convalescent serum. Continue IV steroids with taper Follow Infectious Disease recommendations. Follow D-dimer. 2.8 on 05/01 High-dose DVT prophylaxis/GI prophylaxis Follow clinical course Discussed with RN/RT SAM KANG MD May 03, 2020 10:40
--- NOTE | 2020-05-03 13:51 | NUR ---
SS following up with discharge planning. SS reviewed pt chart and discussed with pt RN. Pt off Vapotherm now and is on nasal canula oxygen. COVID19 positive. SS will continue to follow for discharge planning.
[2020-05-03] MEDS: LISINOPRIL 20 MG TABLET PO SCH (21:13)
[2020-05-03] MEDS: INSULIN GLARGINE SYRINGE. SQ SCH (21:58)
[2020-05-04] VITALS (14 sets, daily range): BP systolic 101–159; BP diastolic 57–79
--- NOTE | 2020-05-04 05:41 | RAD ---
Chest AP portable at 0502: Reason for examination: Covid positive. Comparison is made to previous study dated 04/30/2020. Heart and mediastinum are unchanged. Lung timmons continue show diffuse bilateral parenchymal opacities which show mild interval improvement. No pleural effusions are evident. No acute bony abnormalities are seen. IMPRESSION: Continued presence of diffuse bilateral parenchymal opacities with mild interval improvement. Electronically signed by: Catarina King MD (05/04/2020 5:38 AM) MARILEE
[2020-05-04 05:55] LABS: HEMATOCRIT 38.6 % (36.0-47.0); HEMOGLOBIN 13.2 g/dL (12.0-15.5); RED BLOOD COUNT 4.07 x10^6/uL (3.50-5.40); RED CELL DISTRIBUTION WIDTH 13.2 % (11.5-14.5); WHITE BLOOD COUNT 14.9 x10^3/uL (4.0-11.0)
[2020-05-04] MEDS: methylPREDNISolone SOD SUCC PF 40 MG/ML VIAL. IV SCH (05:56)
[2020-05-04 06:20] LABS: ALBUMIN 2.2 g/dL (3.4-5.0); ALBUMIN/GLOBULIN RATIO 0.5 (1.0-1.7); CALCIUM 9.1 mg/dL (8.5-10.1); CREATININE 0.8 mg/dL (0.6-1.0); GFR 70.7; POTASSIUM 5.5 mmol/L (3.5-5.1); TOTAL BILIRUBIN 0.4 mg/dL (0.2-1.0); TOTAL PROTEIN 6.3 g/dL (6.4-8.2)
--- NOTE | 2020-05-04 06:31 | PDOC ---
Infectious Disease Note Subjective Subjective Doing better. No gross SOA. Feels stronger + but less cough with occ sputum Denies F/C/S/N/V/D/rash ROS ROS O/w neg Vital Sign Vital Signs Vital Signs Date Time Temp Pulse Resp B/P (MAP) Pulse Ox O2 Delivery O2 Flow Rate FiO2 05/04/20 06:00 64 16 136/61 (86) 92 Nasal Cannula 6.0 05/04/20 04:00 97.6 97.6 Physical Exam PHYSICAL EXAM CONSTITUTIONAL: She is alert. She is cooperative. She does better. She is in no acute distress. HEENT: She has normal conjunctivae. Oral cavity, pharynx is dry.- thrush - better NECK: Supple, no JVD. LUNGS: Have some diffuse rhonchi. HEART: S1, S2. ABDOMEN: Obese, soft, no guarding, no rebound. : Xavier EXTREMITIES: Without clubbing, cyanosis or gross edema. Peripheral IV sites are clean. NEUROLOGIC: She is nonfocal, answers questions. PSYCHIATRIC: Affect is appropriate Labs Lab Laboratory Tests Test 05/03/20 08:07 05/03/20 12:08 05/03/20 16:13 05/03/20 21:26 Glucose (Fingerstick) 182 mg/dL (70-99) 187 mg/dL (70-99) 109 mg/dL (70-99) 176 mg/dL (70-99) Test 05/04/20 05:00 White Blood Count 14.9 x10^3/uL (4.0-11.0) Red Blood Count 4.07 x10^6/uL (3.50-5.40) Hemoglobin 13.2 g/dL (12.0-15.5) Hematocrit 38.6 % (36.0-47.0) Mean Corpuscular Volume 95 fL (79-100) Mean Corpuscular Hemoglobin 32 pg (25-35) Mean Corpuscular Hemoglobin Concent 34 g/dL (31-37) Red Cell Distribution Width 13.2 % (11.5-14.5) Platelet Count 260 x10^3/uL (140-400) Sodium Level 136 mmol/L (136-145) Potassium Level 5.5 mmol/L (3.5-5.1) Chloride Level 102 mmol/L (98-107) Carbon Dioxide Level 29 mmol/L (21-32) Anion Gap 5 (6-14) Blood Urea Nitrogen 33 mg/dL (7-20) Creatinine 0.8 mg/dL (0.6-1.0) Estimated GFR (Cockcroft-Gault) 70.7 BUN/Creatinine Ratio 41 (6-20) Glucose Level 165 mg/dL (70-99) Calcium Level 9.1 mg/dL (8.5-10.1) Total Bilirubin 0.4 mg/dL (0.2-1.0) Aspartate Amino Transf (AST/SGOT) 21 U/L (15-37) Alanine Aminotransferase (ALT/SGPT) 13 U/L (14-59) Alkaline Phosphatase 36 U/L (46-116) Total Protein 6.3 g/dL (6.4-8.2) Albumin 2.2 g/dL (3.4-5.0) Albumin/Globulin Ratio 0.5 (1.0-1.7) Micro CXR IMPRESSION: Slight interval improvement in bilateral pulmonary patchy opacities. Objective Assessment Thrush - better Acute Hypoxic Resp failure - some improved now off high flow and on 6 L COVID + completed Remdesivir and Plasma started - 04/29 Leukocytosis - on steroids Abx allergies - Cipro intolerance (upset stomach) Azithromycin - rash Loose stools - some better - had been doing bowel prep for Barium enema Chronic UTI has been on Nitrofurantoin urine cult - neg DM Plan Plan of Care Started Nystatin05/02 Cont off Abx Cont Steroids F/u labs and cults Discont Meropenem/Doxy 05/03- d/w micro and urine cults neg D/c'd Zyvox ID to sign off D/w Nursing PEG VELAZQUEZ MD May 04, 2020 06:31
[2020-05-04] MEDS: INSULIN LISPRO 300 UNITS/3 ML VIAL. SQ SCH ×6 (08:00→17:00)
--- NOTE | 2020-05-04 08:25 | PN ---
DATE: 05/04/2020 SUBJECTIVE: The patient is resting, slightly propped up in bed, sleeping comfortably. She is now on 6 liters oxygen by nasal cannula, maintaining her oxygen saturation at 92%. On questioning her, denied any complaint. The nursing staff did not voice any concerns that she had an uneventful night. PHYSICAL EXAMINATION: GENERAL: When I examined her, she looked pale, no jaundice, cyanosis or thyromegaly. No jugular venous distention. No lower limb edema. VITAL SIGNS: Her heart rate was 64, blood pressure was 136/61, temperature was 97.6, respiratory rate was 16, and oxygen saturation was 92% on 6 liters of oxygen. HEAD, EYES, EARS, NOSE AND THROAT: Showed normocephalic, atraumatic. NECK: Supple. HEART: Normal first and second heart sounds. No gallop, rub or murmur. CHEST: Clear to auscultation. No crepitation or rhonchi anteriorly. ABDOMEN: Distended, soft, nontender. No guarding or rigidity. No organomegaly. All hernial orifices intact. Bowel sounds normal. NEUROLOGIC: She is awake, alert, responding appropriately. All her cranial nerves intact. EXTREMITIES: She moves all extremities without difficulty. Her intake over the last 24 hours was 820, output was 2150. LABORATORY DATA: As of this morning, her white cell count was 14,900; hemoglobin 13; hematocrit 38; MCV 95 and platelet count 260,000. Her chemistry showed a serum sodium 135, potassium 5.5, chloride 102, bicarbonate 29, anion gap of 5, BUN 33, creatinine 0.8, estimated GFR was 70 mL per minute. Her glucose 165, calcium was 9.1. Total bilirubin, AST, ALT, alkaline phosphatase were normal. Total protein 6.2, albumin was 2.2. D-dimer is trending down from a high of 2.81 down to 2.29. ASSESSMENT: 1. COVID-19 pneumonia. 2. Acute hypoxic respiratory failure. 3. The patient has multiple other medical problems including: A. Hypertension, seems to be reasonably controlled. B. Type 2 diabetes mellitus, seems to be reasonably controlled. C. Hyperlipidemia. D. Overactive bladder. PLAN: To continue with IV antibiotic as recommended by Infectious Disease specialist. Continue with oxygen supplementation and titrate down as needed. Continue DVT prophylaxis. Continue GI prophylaxis. She was treated with remdesivir as well as convalescent plasma. She continues to be on steroids. KAILEY FRANK MD DR: SHAWN/radha JOB#: [id number] / [id number]
[2020-05-04] MEDS: COLESEVELAM HCL 625 MG TABLET PO SCH ×2 (08:39→22:44)
[2020-05-04] MEDS: LACTOBACILLUS RHAMNOSUS GG 1 CAPSULE. PO SCH ×2 (08:39→22:43)
[2020-05-04] MEDS: PANTOPRAZOLE 40 MG TABLET.DR. PO SCH (08:39)
[2020-05-04] MEDS: OXYBUTYNIN CHLORIDE 5 MG TABLET PO SCH ×3 (08:39→22:43)
[2020-05-04] MEDS: FENOFIBRATE,MICRONIZED 134 MG CAPSULE PO SCH (08:39)
[2020-05-04] MEDS: metFORMIN 500 MG TABLET PO SCH ×2 (08:39→16:57)
[2020-05-04] MEDS: GLIMEPIRIDE 2 MG TABLET. PO SCH (08:40)
[2020-05-04] MEDS: ENOXAPARIN 40 MG/0.4 ML SYRINGE. SQ SCH ×2 (08:40→22:43)
[2020-05-04] MEDS: NYSTATIN 100,000 UNITS/ML 5 ML ORAL.SUSP. SWSW SCH ×4 (08:40→22:43)
[2020-05-04] MEDS ORDERED: predniSONE 10 MG TABLET PO ONE (09:45)
--- NOTE | 2020-05-04 09:45 | PDOC ---
PULMONARY PROGRESS NOTES DATE: 05/04/20 TIME: 09:37 Subjective Now on High Flow N/C 6 liters a-febrile No increased cough or SOA No overnight concerns from nursing Vitals Vital Signs Date Time Temp Pulse Resp B/P (MAP) Pulse Ox O2 Delivery O2 Flow Rate FiO2 05/04/20 06:00 64 16 136/61 (86) 92 Nasal Cannula 6.0 05/04/20 04:00 97.6 97.6 Comments visual exam done due to COVID-19 pandemia. RRR on HFNC No EDEMA no respiratory distress, no skin rash Labs Laboratory Tests Test 05/02/20 11:48 05/02/20 17:45 05/02/20 22:08 05/03/20 08:07 Glucose (Fingerstick) 223 mg/dL (70-99) 74 mg/dL (70-99) 150 mg/dL (70-99) 182 mg/dL (70-99) Test 05/03/20 12:08 05/03/20 16:13 05/03/20 21:26 05/04/20 05:00 Glucose (Fingerstick) 187 mg/dL (70-99) 109 mg/dL (70-99) 176 mg/dL (70-99) White Blood Count 14.9 x10^3/uL (4.0-11.0) Red Blood Count 4.07 x10^6/uL (3.50-5.40) Hemoglobin 13.2 g/dL (12.0-15.5) Hematocrit 38.6 % (36.0-47.0) Mean Corpuscular Volume 95 fL (79-100) Mean Corpuscular Hemoglobin 32 pg (25-35) Mean Corpuscular Hemoglobin Concent 34 g/dL (31-37) Red Cell Distribution Width 13.2 % (11.5-14.5) Platelet Count 260 x10^3/uL (140-400) Sodium Level 136 mmol/L (136-145) Potassium Level 5.5 mmol/L (3.5-5.1) Chloride Level 102 mmol/L (98-107) Carbon Dioxide Level 29 mmol/L (21-32) Anion Gap 5 (6-14) Blood Urea Nitrogen 33 mg/dL (7-20) Creatinine 0.8 mg/dL (0.6-1.0) Estimated GFR (Cockcroft-Gault) 70.7 BUN/Creatinine Ratio 41 (6-20) Glucose Level 165 mg/dL (70-99) Calcium Level 9.1 mg/dL (8.5-10.1) Total Bilirubin 0.4 mg/dL (0.2-1.0) Aspartate Amino Transf (AST/SGOT) 21 U/L (15-37) Alanine Aminotransferase (ALT/SGPT) 13 U/L (14-59) Alkaline Phosphatase 36 U/L (46-116) Total Protein 6.3 g/dL (6.4-8.2) Albumin 2.2 g/dL (3.4-5.0) Albumin/Globulin Ratio 0.5 (1.0-1.7) Laboratory Tests Test 05/03/20 12:08 05/03/20 16:13 05/03/20 21:26 05/04/20 05:00 Glucose (Fingerstick) 187 mg/dL (70-99) 109 mg/dL (70-99) 176 mg/dL (70-99) White Blood Count 14.9 x10^3/uL (4.0-11.0) Red Blood Count 4.07 x10^6/uL (3.50-5.40) Hemoglobin 13.2 g/dL (12.0-15.5) Hematocrit 38.6 % (36.0-47.0) Mean Corpuscular Volume 95 fL (79-100) Mean Corpuscular Hemoglobin 32 pg (25-35) Mean Corpuscular Hemoglobin Concent 34 g/dL (31-37) Red Cell Distribution Width 13.2 % (11.5-14.5) Platelet Count 260 x10^3/uL (140-400) Sodium Level 136 mmol/L (136-145) Potassium Level 5.5 mmol/L (3.5-5.1) Chloride Level 102 mmol/L (98-107) Carbon Dioxide Level 29 mmol/L (21-32) Anion Gap 5 (6-14) Blood Urea Nitrogen 33 mg/dL (7-20) Creatinine 0.8 mg/dL (0.6-1.0) Estimated GFR (Cockcroft-Gault) 70.7 BUN/Creatinine Ratio 41 (6-20) Glucose Level 165 mg/dL (70-99) Calcium Level 9.1 mg/dL (8.5-10.1) Total Bilirubin 0.4 mg/dL (0.2-1.0) Aspartate Amino Transf (AST/SGOT) 21 U/L (15-37) Alanine Aminotransferase (ALT/SGPT) 13 U/L (14-59) Alkaline Phosphatase 36 U/L (46-116) Total Protein 6.3 g/dL (6.4-8.2) Albumin 2.2 g/dL (3.4-5.0) Albumin/Globulin Ratio 0.5 (1.0-1.7) Medications Active Scripts Medications Dose Route/Sig Max Daily Dose Days Date Category Lantus Solostar (Insulin Glargine,Hum.rec.anlog) 100 Unit/1 Ml Insuln.pen 35 Unit SQ QHS 04/28/20 Reported Welchol (Colesevelam Hcl) 625 Mg Tablet 3 Tab PO BID 30 04/28/20 Reported Proair Hfa (Albuterol Sulfate) 8.5 Gm Hfa.aer.ad 1 Puff INH PRN Q6HRS PRN 04/28/20 Reported Oxybutynin Chloride 5 Mg Tablet 5 Mg PO TID 04/28/20 Reported Lisinopril 20 Mg Tablet 1 Tab PO QHS 04/28/20 Reported Fenofibrate 54 Mg Tablet 145 Mg PO DAILY 05/27/14 Reported Metformin Hcl 1,000 Mg Tablet 1 Tab PO BID 05/27/14 Reported Glimepiride 2 Mg Tablet 1 Tab PO DAILY 05/27/14 Reported Comments CXR 05/04/2020 IMPRESSION: Continued presence of diffuse bilateral parenchymal opacities with mild interval improvement. Impression . IMPRESSION: 1. Acute hypoxemic respiratory failure.,improving 2. COVID-19 pneumonia. 3. Possible bacterial pneumonia. 4. Abnormal CT chest, compatible with COVID-19. 5. Chronic urinary tract infection. 6. Diabetes. 7. leukocytosis Plan . PLAN: Continue supplemental oxygen, currently on HFNC now on 6 liters-- tolerating well Chest x-ray reviewed, bilateral pulmonary infiltrates consistent with COVID-19 infection Status post remdesivir/Convalescent serum. Transition to po steroids Follow Infectious Disease recommendations-- off ABX Follow D-dimer. 2.8 on 05/01 High-dose DVT prophylaxis/GI prophylaxis Follow clinical course Discussed with RN/RT May transfer out of the ICU today if ok with other consults SAM KANG MD May 04, 2020 09:45
--- NOTE | 2020-05-04 14:47 | NUR ---
SS following up with discharge planning. SS reviewed pt chart and discussed with pt RN. Pt transferred to room 674. COVID19 positive. Pt on nasal canula oxygen. SS will continue to follow for discharge planning.
[2020-05-04] MEDS: LISINOPRIL 20 MG TABLET PO SCH (22:44)
[2020-05-05 03:06] VITALS: BP 142/68
[2020-05-05 04:49] LABS: HEMATOCRIT 39.6 % (36.0-47.0); RED BLOOD COUNT 4.16 x10^6/uL (3.50-5.40); RED CELL DISTRIBUTION WIDTH 12.7 % (11.5-14.5); WHITE BLOOD COUNT 17.3 x10^3/uL (4.0-11.0)
[2020-05-05 05:22] LABS: ALBUMIN 2.2 g/dL (3.4-5.0); ALBUMIN/GLOBULIN RATIO 0.5 (1.0-1.7); CALCIUM 8.9 mg/dL (8.5-10.1); CREATININE 0.8 mg/dL (0.6-1.0); GFR 70.7; POTASSIUM 4.8 mmol/L (3.5-5.1); TOTAL BILIRUBIN 0.5 mg/dL (0.2-1.0); TOTAL PROTEIN 6.3 g/dL (6.4-8.2)
[2020-05-05 07:00] VITALS: BP 107/55
[2020-05-05] MEDS: INSULIN LISPRO 300 UNITS/3 ML VIAL. SQ SCH ×6 (08:00→16:55)
--- NOTE | 2020-05-05 09:56 | PDOC ---
PULMONARY PROGRESS NOTES DATE: 05/05/20 TIME: 09:55 Subjective Now on N/C 5 liters a-febrile No increased cough or SOA No overnight concerns from nursing Vitals Vital Signs Date Time Temp Pulse Resp B/P (MAP) Pulse Ox O2 Delivery O2 Flow Rate FiO2 05/05/20 03:06 97.6 69 18 142/68 (92) 94 Nasal Cannula 6.0 97.6 Comments visual exam done due to COVID-19 pandemia. RRR on HFNC No EDEMA no respiratory distress, no skin rash Labs Laboratory Tests Test 05/03/20 12:08 05/03/20 16:13 05/03/20 21:26 05/04/20 05:00 Glucose (Fingerstick) 187 mg/dL (70-99) 109 mg/dL (70-99) 176 mg/dL (70-99) White Blood Count 14.9 x10^3/uL (4.0-11.0) Red Blood Count 4.07 x10^6/uL (3.50-5.40) Hemoglobin 13.2 g/dL (12.0-15.5) Hematocrit 38.6 % (36.0-47.0) Mean Corpuscular Volume 95 fL (79-100) Mean Corpuscular Hemoglobin 32 pg (25-35) Mean Corpuscular Hemoglobin Concent 34 g/dL (31-37) Red Cell Distribution Width 13.2 % (11.5-14.5) Platelet Count 260 x10^3/uL (140-400) Sodium Level 136 mmol/L (136-145) Potassium Level 5.5 mmol/L (3.5-5.1) Chloride Level 102 mmol/L (98-107) Carbon Dioxide Level 29 mmol/L (21-32) Anion Gap 5 (6-14) Blood Urea Nitrogen 33 mg/dL (7-20) Creatinine 0.8 mg/dL (0.6-1.0) Estimated GFR (Cockcroft-Gault) 70.7 BUN/Creatinine Ratio 41 (6-20) Glucose Level 165 mg/dL (70-99) Calcium Level 9.1 mg/dL (8.5-10.1) Total Bilirubin 0.4 mg/dL (0.2-1.0) Aspartate Amino Transf (AST/SGOT) 21 U/L (15-37) Alanine Aminotransferase (ALT/SGPT) 13 U/L (14-59) Alkaline Phosphatase 36 U/L (46-116) Total Protein 6.3 g/dL (6.4-8.2) Albumin 2.2 g/dL (3.4-5.0) Albumin/Globulin Ratio 0.5 (1.0-1.7) Test 05/04/20 08:49 05/04/20 12:29 05/04/20 12:30 05/04/20 16:44 Glucose (Fingerstick) 120 mg/dL (70-99) 94 mg/dL (70-99) 99 mg/dL (70-99) D-Dimer (Sera) 1.49 ug/mlFEU (0.00-0.50) Test 05/04/20 19:54 05/05/20 04:00 Glucose (Fingerstick) 131 mg/dL (70-99) White Blood Count 17.3 x10^3/uL (4.0-11.0) Red Blood Count 4.16 x10^6/uL (3.50-5.40) Hemoglobin 13.0 g/dL (12.0-15.5) Hematocrit 39.6 % (36.0-47.0) Mean Corpuscular Volume 95 fL (79-100) Mean Corpuscular Hemoglobin 31 pg (25-35) Mean Corpuscular Hemoglobin Concent 33 g/dL (31-37) Red Cell Distribution Width 12.7 % (11.5-14.5) Platelet Count 248 x10^3/uL (140-400) Sodium Level 136 mmol/L (136-145) Potassium Level 4.8 mmol/L (3.5-5.1) Chloride Level 102 mmol/L (98-107) Carbon Dioxide Level 28 mmol/L (21-32) Anion Gap 6 (6-14) Blood Urea Nitrogen 36 mg/dL (7-20) Creatinine 0.8 mg/dL (0.6-1.0) Estimated GFR (Cockcroft-Gault) 70.7 BUN/Creatinine Ratio 45 (6-20) Glucose Level 92 mg/dL (70-99) Calcium Level 8.9 mg/dL (8.5-10.1) Total Bilirubin 0.5 mg/dL (0.2-1.0) Aspartate Amino Transf (AST/SGOT) 35 U/L (15-37) Alanine Aminotransferase (ALT/SGPT) 22 U/L (14-59) Alkaline Phosphatase 39 U/L (46-116) Total Protein 6.3 g/dL (6.4-8.2) Albumin 2.2 g/dL (3.4-5.0) Albumin/Globulin Ratio 0.5 (1.0-1.7) Laboratory Tests Test 05/04/20 12:29 05/04/20 12:30 05/04/20 16:44 05/04/20 19:54 Glucose (Fingerstick) 94 mg/dL (70-99) 99 mg/dL (70-99) 131 mg/dL (70-99) D-Dimer (Sera) 1.49 ug/mlFEU (0.00-0.50) Test 05/05/20 04:00 White Blood Count 17.3 x10^3/uL (4.0-11.0) Red Blood Count 4.16 x10^6/uL (3.50-5.40) Hemoglobin 13.0 g/dL (12.0-15.5) Hematocrit 39.6 % (36.0-47.0) Mean Corpuscular Volume 95 fL (79-100) Mean Corpuscular Hemoglobin 31 pg (25-35) Mean Corpuscular Hemoglobin Concent 33 g/dL (31-37) Red Cell Distribution Width 12.7 % (11.5-14.5) Platelet Count 248 x10^3/uL (140-400) Sodium Level 136 mmol/L (136-145) Potassium Level 4.8 mmol/L (3.5-5.1) Chloride Level 102 mmol/L (98-107) Carbon Dioxide Level 28 mmol/L (21-32) Anion Gap 6 (6-14) Blood Urea Nitrogen 36 mg/dL (7-20) Creatinine 0.8 mg/dL (0.6-1.0) Estimated GFR (Cockcroft-Gault) 70.7 BUN/Creatinine Ratio 45 (6-20) Glucose Level 92 mg/dL (70-99) Calcium Level 8.9 mg/dL (8.5-10.1) Total Bilirubin 0.5 mg/dL (0.2-1.0) Aspartate Amino Transf (AST/SGOT) 35 U/L (15-37) Alanine Aminotransferase (ALT/SGPT) 22 U/L (14-59) Alkaline Phosphatase 39 U/L (46-116) Total Protein 6.3 g/dL (6.4-8.2) Albumin 2.2 g/dL (3.4-5.0) Albumin/Globulin Ratio 0.5 (1.0-1.7) Medications Active Scripts Medications Dose Route/Sig Max Daily Dose Days Date Category Lantus Solostar (Insulin Glargine,Hum.rec.anlog) 100 Unit/1 Ml Insuln.pen 35 Unit SQ QHS 04/28/20 Reported Welchol (Colesevelam Hcl) 625 Mg Tablet 3 Tab PO BID 30 04/28/20 Reported Proair Hfa (Albuterol Sulfate) 8.5 Gm Hfa.aer.ad 1 Puff INH PRN Q6HRS PRN 04/28/20 Reported Oxybutynin Chloride 5 Mg Tablet 5 Mg PO TID 04/28/20 Reported Lisinopril 20 Mg Tablet 1 Tab PO QHS 04/28/20 Reported Fenofibrate 54 Mg Tablet 145 Mg PO DAILY 05/27/14 Reported Metformin Hcl 1,000 Mg Tablet 1 Tab PO BID 05/27/14 Reported Glimepiride 2 Mg Tablet 1 Tab PO DAILY 05/27/14 Reported Comments CXR 05/04/2020 IMPRESSION: Continued presence of diffuse bilateral parenchymal opacities with mild interval improvement. Impression . IMPRESSION: 1. Acute hypoxemic respiratory failure.,improving 2. COVID-19 pneumonia. 3. Possible bacterial pneumonia. 4. Abnormal CT chest, compatible with COVID-19. 5. Chronic urinary tract infection. 6. Diabetes. 7. leukocytosis Plan . PLAN: Continue supplemental oxygen, currently on 5 liters-- tolerating well Chest x-ray reviewed, bilateral pulmonary infiltrates consistent with COVID-19 infection Status post remdesivir/Convalescent serum. po steroids Follow Infectious Disease recommendations-- off ABX Follow D-dimer. 2.8 on 05/01 High-dose DVT prophylaxis/GI prophylaxis Follow clinical course Discussed with RN/RT likely dc next week SAM KANG MD May 05, 2020 09:56
--- NOTE | 2020-05-05 10:31 | PN ---
DATE: 05/05/2020 SUBJECTIVE: The patient is resting flat in bed comfortably, in no apparent distress. On questioning her, she is feeling generally much improved. Denied any chest pain or shortness of breath. Her oxygen requirement is down to 5 liters, maintaining her oxygen saturation at 96%. Nursing staff did not voice any concerns that she has generally uneventful night. PHYSICAL EXAMINATION: GENERAL: When I examined her, she looked well and was clearly in no apparent respiratory distress. No pallor, jaundice, cyanosis or thyromegaly. No jugular venous distention or limb edema. VITAL SIGNS: Her heart rate was 69, blood pressure was 142/68, temperature was 97.6, respiratory rate was 18 and oxygen saturation was 94% on 5 liters of oxygen. HEENT: Showed normocephalic, atraumatic. NECK: Supple. HEART: Showed normal first and second heart sounds. No gallop or murmur. CHEST: Showed central trachea, equal bilateral chest expansion, air entry, vesicular breath sounds. I could not appreciate any crepitation or rhonchi anteriorly. ABDOMEN: Distended, soft, nontender. NEUROLOGIC: She is awake, alert, responding appropriately. All cranial nerves intact. She moves extremities without difficulty. Her intake over the last 24 hours was 850, output was 3180. LABORATORY DATA: As of this morning, her white cell count was 17,300, hemoglobin 13, hematocrit 39, MCV 95, and platelet count 248,000. Her chemistry showed a serum sodium of 136, potassium 4.8, chloride 102, bicarbonate 28, anion gap of 6, BUN 36, creatinine was 0.8. Her estimated GFR was 70 mL per minute. Her glucose was 92, calcium was 8.9. Total bilirubin, AST, ALT, alkaline phosphatase were normal. Total protein 6.3, albumin 2.2. Her D-dimer as of yesterday is down further to 1.49. ASSESSMENT: 1. COVID-19 pneumonia. 2. Acute hypoxic respiratory failure, improving. Her oxygen requirement came down from 40 liters and FiO2 of 90% on Vapotherm down to 6 liters this morning. 3. The patient has multiple other medical problems including: A. Hypertension, seems to be reasonably controlled. B. Type 2 diabetes mellitus, seems to be reasonably controlled. C. Hyperlipidemia. D. Overactive bladder. E. Protein-calorie malnutrition, serum albumin is only 1.2. PLAN: To continue with nebulized albuterol and Atrovent. Continue with metformin, glyburide, and insulin for blood sugar control. Continue with oxybutynin for overactive bladder. She is currently off of all antibiotics. Continue with DVT prophylaxis and GI prophylaxis. Start the process of physical and occupational therapy as soon as the patient is able to participate. KAILEY FRANK MD DR: SHAWN/radha JOB#: [id number] / [id number]
[2020-05-05] MEDS: OXYBUTYNIN CHLORIDE 5 MG TABLET PO SCH ×3 (10:54→21:12)
[2020-05-05] MEDS: FENOFIBRATE,MICRONIZED 134 MG CAPSULE PO SCH (10:54)
[2020-05-05] MEDS: LACTOBACILLUS RHAMNOSUS GG 1 CAPSULE. PO SCH ×2 (10:54→21:14)
[2020-05-05] MEDS: COLESEVELAM HCL 625 MG TABLET PO SCH ×2 (10:54→21:14)
[2020-05-05] MEDS: NYSTATIN 100,000 UNITS/ML 5 ML ORAL.SUSP. SWSW SCH ×4 (10:54→21:15)
[2020-05-05] MEDS: ENOXAPARIN 40 MG/0.4 ML SYRINGE. SQ SCH ×2 (10:55→21:15)
[2020-05-05] MEDS: GLIMEPIRIDE 2 MG TABLET. PO SCH (10:55)
[2020-05-05] MEDS: PANTOPRAZOLE 40 MG TABLET.DR. PO SCH (10:55)
[2020-05-05] MEDS: metFORMIN 500 MG TABLET PO SCH ×2 (10:55→17:38)
[2020-05-05 11:20] VITALS: BP 168/74
[2020-05-05 15:18] VITALS: BP 108/62
[2020-05-05 19:00] VITALS: BP 111/74
[2020-05-05] MEDS: LISINOPRIL 20 MG TABLET PO SCH (21:15)
[2020-05-05 23:11] VITALS: BP 102/50
[2020-05-06] MEDS: DEXTROSE 50% 25 GM / 50ML DISP.SYRIN. IV PRN ×2 (02:03→16:33)
[2020-05-06 03:18] VITALS: BP 95/42
[2020-05-06 07:38] VITALS: BP 100/63
[2020-05-06 07:52] LABS: HEMATOCRIT 36.8 % (36.0-47.0); HEMOGLOBIN 12.5 g/dL (12.0-15.5); RED BLOOD COUNT 3.92 x10^6/uL (3.50-5.40); RED CELL DISTRIBUTION WIDTH 12.8 % (11.5-14.5); WHITE BLOOD COUNT 13.2 x10^3/uL (4.0-11.0)
[2020-05-06 07:55] LABS: CALCIUM 9.2 mg/dL (8.5-10.1); CREATININE 0.8 mg/dL (0.6-1.0); GFR 70.7; POTASSIUM 5.4 mmol/L (3.5-5.1)
[2020-05-06] MEDS ORDERED: DEXTROSE 50% 25 GM / 50ML DISP.SYRIN. IV PRN (09:45)
[2020-05-06 11:31] VITALS: BP 113/54
[2020-05-06] MEDS: LACTOBACILLUS RHAMNOSUS GG 1 CAPSULE. PO SCH ×2 (11:40→20:40)
[2020-05-06] MEDS: NYSTATIN 100,000 UNITS/ML 5 ML ORAL.SUSP. SWSW SCH ×4 (11:40→20:42)
[2020-05-06] MEDS: metFORMIN 500 MG TABLET PO SCH ×2 (11:41→18:03)
[2020-05-06] MEDS: PANTOPRAZOLE 40 MG TABLET.DR. PO SCH (11:41)
[2020-05-06] MEDS: FENOFIBRATE,MICRONIZED 134 MG CAPSULE PO SCH (11:41)
[2020-05-06] MEDS: OXYBUTYNIN CHLORIDE 5 MG TABLET PO SCH ×3 (11:41→20:40)
[2020-05-06] MEDS: GLIMEPIRIDE 2 MG TABLET. PO SCH (11:41)
[2020-05-06] MEDS: COLESEVELAM HCL 625 MG TABLET PO SCH ×2 (11:41→20:40)
[2020-05-06] MEDS: ENOXAPARIN 40 MG/0.4 ML SYRINGE. SQ SCH ×2 (11:42→20:42)
--- NOTE | 2020-05-06 11:55 | PN ---
DATE: 05/06/2020 SUBJECTIVE: The patient is resting, slightly propped up in bed, in no apparent respiratory distress. She is awake, alert, maintaining her oxygen saturation at 98% on 5 liters of oxygen. On questioning her, denied any complaint. Nursing staff stated that she did have hypoglycemia with a blood sugar of about 48 this morning. She is on Amaryl, metformin. She is also on scheduled NovoLog insulin and insulin sliding scale. PHYSICAL EXAMINATION: GENERAL: When I examined her this morning, she looked well and was clearly in no apparent respiratory distress. No pallor, jaundice, cyanosis or thyromegaly. No jugular venous distention. No lower limb edema. VITAL SIGNS: Her heart rate was 79, blood pressure was 100/63, temperature was 98.8, respiratory rate 20, and oxygen saturation was 98% on 5 liters of oxygen. HEAD, EYES, EARS, NOSE AND THROAT: Showed normocephalic, atraumatic. NECK: Supple. HEART: Showed normal first and second heart sounds. No gallop, rub or murmur. CHEST: Clear to auscultation. No crepitation or rhonchi. ABDOMEN: Distended, soft, nontender. NEUROLOGIC: She is grossly intact. Her intake was incompletely recorded. LABORATORY DATA: As of this morning showed a white cell count 13,200; hemoglobin 12.5; hematocrit 36.8; MCV 94 and platelet count 212,000. Her chemistry showed a serum sodium 135, potassium 5.4, chloride 103, bicarbonate 29, anion gap of 3, BUN 35, creatinine 0.8, estimated GFR was 70 mL per minute. Her glucose was 52 and calcium was 9.2. ASSESSMENT: 1. COVID-19 pneumonia. 2. Acute hypoxic respiratory failure, improving. Her oxygen requirement came down to 40 liters on FiO2 of 90% on Vapotherm to 5 liters this morning. 3. The patient has multiple other medical problems including: A. Hypertension, seems to be reasonably controlled. B. Type 2 diabetes mellitus with recurrent episode of hypoglycemia. C. Hyperlipidemia. D. Overactive bladder. D. Protein-calorie malnutrition with serum albumin is only 1.2 g/dL. PLAN: To continue with nebulized albuterol and Atrovent. Continue with metformin and glyburide. I discontinued her scheduled insulin and switched her insulin sliding scale to a low dose before meals only. Continue with oxybutynin for overactive bladder. She is currently off of all antibiotics. We will continue meanwhile on DVT and GI prophylaxis and I will remove the Xavier catheter and orders the physical and occupational therapy. KAILEY FRANK MD DR: SHAWN/radha JOB#: [id number] / [id number]
[2020-05-06] MEDS: INSULIN LISPRO 300 UNITS/3 ML VIAL. SQ SCH ×2 (12:00→17:00)
--- NOTE | 2020-05-06 12:21 | PDOC ---
PULMONARY PROGRESS NOTES DATE: 05/06/20 TIME: 12:19 Subjective Now on N/C 3 liters a-febrile No increased cough or SOA No overnight concerns from nursing Vitals Vital Signs Date Time Temp Pulse Resp B/P (MAP) Pulse Ox O2 Delivery O2 Flow Rate FiO2 05/06/20 11:31 97.9 82 16 113/54 (73) 96 Nasal Cannula 3.0 97.9 Comments visual exam done due to COVID-19 pandemia. RRR on HFNC No EDEMA no respiratory distress, no skin rash Labs Laboratory Tests Test 05/04/20 12:29 05/04/20 12:30 05/04/20 16:44 05/04/20 19:54 Glucose (Fingerstick) 94 mg/dL (70-99) 99 mg/dL (70-99) 131 mg/dL (70-99) D-Dimer (Sera) 1.49 ug/mlFEU (0.00-0.50) Test 05/05/20 04:00 05/05/20 09:39 05/05/20 12:12 05/05/20 15:56 White Blood Count 17.3 x10^3/uL (4.0-11.0) Red Blood Count 4.16 x10^6/uL (3.50-5.40) Hemoglobin 13.0 g/dL (12.0-15.5) Hematocrit 39.6 % (36.0-47.0) Mean Corpuscular Volume 95 fL (79-100) Mean Corpuscular Hemoglobin 31 pg (25-35) Mean Corpuscular Hemoglobin Concent 33 g/dL (31-37) Red Cell Distribution Width 12.7 % (11.5-14.5) Platelet Count 248 x10^3/uL (140-400) Sodium Level 136 mmol/L (136-145) Potassium Level 4.8 mmol/L (3.5-5.1) Chloride Level 102 mmol/L (98-107) Carbon Dioxide Level 28 mmol/L (21-32) Anion Gap 6 (6-14) Blood Urea Nitrogen 36 mg/dL (7-20) Creatinine 0.8 mg/dL (0.6-1.0) Estimated GFR (Cockcroft-Gault) 70.7 BUN/Creatinine Ratio 45 (6-20) Glucose Level 92 mg/dL (70-99) Calcium Level 8.9 mg/dL (8.5-10.1) Total Bilirubin 0.5 mg/dL (0.2-1.0) Aspartate Amino Transf (AST/SGOT) 35 U/L (15-37) Alanine Aminotransferase (ALT/SGPT) 22 U/L (14-59) Alkaline Phosphatase 39 U/L (46-116) Total Protein 6.3 g/dL (6.4-8.2) Albumin 2.2 g/dL (3.4-5.0) Albumin/Globulin Ratio 0.5 (1.0-1.7) Glucose (Fingerstick) 63 mg/dL (70-99) 121 mg/dL (70-99) 89 mg/dL (70-99) Test 05/05/20 20:53 05/06/20 01:55 05/06/20 02:16 05/06/20 07:00 Glucose (Fingerstick) 81 mg/dL (70-99) 46 mg/dL (70-99) 196 mg/dL (70-99) 48 mg/dL (70-99) White Blood Count 13.2 x10^3/uL (4.0-11.0) Red Blood Count 3.92 x10^6/uL (3.50-5.40) Hemoglobin 12.5 g/dL (12.0-15.5) Hematocrit 36.8 % (36.0-47.0) Mean Corpuscular Volume 94 fL (79-100) Mean Corpuscular Hemoglobin 32 pg (25-35) Mean Corpuscular Hemoglobin Concent 34 g/dL (31-37) Red Cell Distribution Width 12.8 % (11.5-14.5) Platelet Count 212 x10^3/uL (140-400) Sodium Level 135 mmol/L (136-145) Potassium Level 5.4 mmol/L (3.5-5.1) Chloride Level 103 mmol/L (98-107) Carbon Dioxide Level 29 mmol/L (21-32) Anion Gap 3 (6-14) Blood Urea Nitrogen 35 mg/dL (7-20) Creatinine 0.8 mg/dL (0.6-1.0) Estimated GFR (Cockcroft-Gault) 70.7 Glucose Level 52 mg/dL (70-99) Calcium Level 9.2 mg/dL (8.5-10.1) Test 05/06/20 08:33 05/06/20 09:45 Glucose (Fingerstick) 92 mg/dL (70-99) 92 mg/dL (70-99) Laboratory Tests Test 05/05/20 15:56 05/05/20 20:53 05/06/20 01:55 05/06/20 02:16 Glucose (Fingerstick) 89 mg/dL (70-99) 81 mg/dL (70-99) 46 mg/dL (70-99) 196 mg/dL (70-99) Test 05/06/20 07:00 05/06/20 08:33 05/06/20 09:45 White Blood Count 13.2 x10^3/uL (4.0-11.0) Red Blood Count 3.92 x10^6/uL (3.50-5.40) Hemoglobin 12.5 g/dL (12.0-15.5) Hematocrit 36.8 % (36.0-47.0) Mean Corpuscular Volume 94 fL (79-100) Mean Corpuscular Hemoglobin 32 pg (25-35) Mean Corpuscular Hemoglobin Concent 34 g/dL (31-37) Red Cell Distribution Width 12.8 % (11.5-14.5) Platelet Count 212 x10^3/uL (140-400) Sodium Level 135 mmol/L (136-145) Potassium Level 5.4 mmol/L (3.5-5.1) Chloride Level 103 mmol/L (98-107) Carbon Dioxide Level 29 mmol/L (21-32) Anion Gap 3 (6-14) Blood Urea Nitrogen 35 mg/dL (7-20) Creatinine 0.8 mg/dL (0.6-1.0) Estimated GFR (Cockcroft-Gault) 70.7 Glucose Level 52 mg/dL (70-99) Glucose (Fingerstick) 48 mg/dL (70-99) 92 mg/dL (70-99) 92 mg/dL (70-99) Calcium Level 9.2 mg/dL (8.5-10.1) Medications Active Scripts Medications Dose Route/Sig Max Daily Dose Days Date Category Naty Kingsleyostar (Insulin Glargine,Hum.rec.anlog) 100 Unit/1 Ml Insuln.pen 35 Unit SQ QHS 04/28/20 Reported Welchol (Colesevelam Hcl) 625 Mg Tablet 3 Tab PO BID 30 04/28/20 Reported Proair Hfa (Albuterol Sulfate) 8.5 Gm Hfa.aer.ad 1 Puff INH PRN Q6HRS PRN 04/28/20 Reported Oxybutynin Chloride 5 Mg Tablet 5 Mg PO TID 04/28/20 Reported Lisinopril 20 Mg Tablet 1 Tab PO QHS 04/28/20 Reported Fenofibrate 54 Mg Tablet 145 Mg PO DAILY 05/27/14 Reported Metformin Hcl 1,000 Mg Tablet 1 Tab PO BID 05/27/14 Reported Glimepiride 2 Mg Tablet 1 Tab PO DAILY 05/27/14 Reported Comments CXR 05/04/2020 IMPRESSION: Continued presence of diffuse bilateral parenchymal opacities with mild interval improvement. Impression . IMPRESSION: 1. Acute hypoxemic respiratory failure.,improving 2. COVID-19 pneumonia. 3. Possible bacterial pneumonia. 4. Abnormal CT chest, compatible with COVID-19. 5. Chronic urinary tract infection. 6. Diabetes. 7. leukocytosis Plan . PLAN: Continue supplemental oxygen, currently on 3 liters-- tolerating well Chest x-ray reviewed, bilateral pulmonary infiltrates consistent with COVID-19 infection Status post remdesivir/Convalescent serum. po steroids Follow Infectious Disease recommendations-- off ABX Follow D-dimer. 2.8 on 05/01 High-dose DVT prophylaxis/GI prophylaxis Follow clinical course Discussed with RN likely dc home in 24 hrs. Need PT SAM Zhao MD May 06, 2020 12:21
[2020-05-06 15:36] VITALS: BP 111/52
[2020-05-06 19:00] VITALS: BP 97/46
[2020-05-06] MEDS: LISINOPRIL 20 MG TABLET PO SCH (20:41)
[2020-05-06 22:41] VITALS: BP 109/49
[2020-05-07 03:00] VITALS: BP 127/60
[2020-05-07 05:46] LABS: CALCIUM 8.6 mg/dL (8.5-10.1); CREATININE 0.8 mg/dL (0.6-1.0); GFR 70.7; POTASSIUM 5.2 mmol/L (3.5-5.1)
[2020-05-07 07:00] VITALS: BP 138/54
[2020-05-07] MEDS: ENOXAPARIN 40 MG/0.4 ML SYRINGE. SQ SCH (07:41)
[2020-05-07] MEDS: COLESEVELAM HCL 625 MG TABLET PO SCH (07:41)
[2020-05-07] MEDS: FENOFIBRATE,MICRONIZED 134 MG CAPSULE PO SCH (07:42)
[2020-05-07] MEDS: LACTOBACILLUS RHAMNOSUS GG 1 CAPSULE. PO SCH (07:42)
[2020-05-07] MEDS: metFORMIN 500 MG TABLET PO SCH (07:42)
[2020-05-07] MEDS: NYSTATIN 100,000 UNITS/ML 5 ML ORAL.SUSP. SWSW SCH ×2 (07:42→13:45)
[2020-05-07] MEDS: OXYBUTYNIN CHLORIDE 5 MG TABLET PO SCH ×2 (07:42→13:45)
[2020-05-07] MEDS: PANTOPRAZOLE 40 MG TABLET.DR. PO SCH (07:44)
[2020-05-07] MEDS: GLIMEPIRIDE 2 MG TABLET. PO SCH (07:44)
[2020-05-07] MEDS: INSULIN LISPRO 300 UNITS/3 ML VIAL. SQ SCH ×2 (08:00→12:00)
--- NOTE | 2020-05-07 09:01 | DS ---
DATE OF DISCHARGE: 05/07/2020 HOSPITAL COURSE: The patient is a 70-year-old [employer]. KAILEY FRANK MD DR: SHAWN/radha JOB#: [id number] / [id number]
--- NOTE | 2020-05-07 09:03 | DS ---
DATE OF DISCHARGE: 05/07/2020 HOSPITAL COURSE: The patient is a 70-year-old female patient who was originally [employer]. KAILEY FRANK MD DR: SHAWN/radha JOB#: [id number] / [id number]
--- NOTE | 2020-05-07 09:21 | DS ---
DATE OF DISCHARGE: 05/07/2020 HOSPITAL COURSE: The patient is a 70-year-old female patient, who was originally seen at the Emergency Room of [facility] with generalized weakness, fever and mild cough. Her temperature at the time was 101.1. She was admitted and she was swabbed for COVID and was started on IV antibiotics as well as IV Solu-Medrol. Initially, she was on room air; however, her oxygen requirement has dramatically worsened within 48 hours to 15 liters by nonrebreather mask and her chest x-ray has dramatically worsened; and therefore, a decision was made to transfer her to [facility] ICU where she was evaluated by the Infectious Disease and the web site developer. She was put on Vapotherm with 40 liters of oxygen and an FiO2 of 90%. She gradually improved. Her oxygen requirement dropped down initially to 10 and eventually to 5 liters; was transferred to the floor. Her oxygen requirement this morning was actually she is doing 95% on room air and on 3 liters, she was doing 97%. Denied any chest pain, shortness of breath, cough, phlegm, hemoptysis; and therefore, a decision was made to discharge her home to continue on a tapering course of steroids and all her other medications. She has completed antibiotics. She was treated with remdesivir as well as convalescent plasma. PHYSICAL EXAMINATION: GENERAL: When I saw her this morning, she looked well and was clearly in no apparent respiratory distress. No pallor, jaundice, cyanosis, or thyromegaly. No jugular venous distention. No lower limb edema. VITAL SIGNS: Her heart rate was 94, blood pressure was 138/54, temperature was 98, respiratory rate was 18 and oxygen saturation was 96% on 2 liters of oxygen. HEAD, EYES, EARS, NOSE AND THROAT: Normocephalic, atraumatic. NECK: Supple. HEART: Showed normal first and second heart sounds. No gallop or murmur. CHEST: Showed central trachea, equal bilateral expansion, air entry, vesicular sounds. I could not really appreciate any crepitation or rhonchi. ABDOMEN: Distended, soft, nontender. NEUROLOGIC: She is awake, alert, responding appropriately. All cranial nerves intact. EXTREMITIES: She moves extremities without difficulty. She ambulates without assistance or assistive devices. LABORATORY DATA: As of yesterday, her white cell count was 13,200; hemoglobin 12.5; hematocrit 36.8; MCV 94 and platelet count 212,000. Her chemistry showed a serum sodium 137, potassium 5.2, chloride 103, bicarbonate 25, anion gap of 9, BUN 30, creatinine 0.8, estimated GFR was 70 mL per minute. Her glucose was 69, calcium was 8.6. Her D-dimer came down from 2.81 down to 1.49. DISCHARGE MEDICATIONS: She was discharged home to continue on a tapering course of steroids in the form of prednisone 40 mg daily for 3 days; 30 mg once a day for 3 days; 20 mg once a day for 3 days; and 10 mg once a day for 3 days, albuterol sulfate for ProAir 1 puff every 4 hours, Welchol 625 mg; she takes 3 tablets twice a day, fenofibrate 145 mg once a day, glimepiride 2 mg daily. She is on Lantus insulin 35 units subcutaneously at bedtime, lisinopril 20 mg at bedtime, metformin 1000 mg twice a day and oxybutynin chloride 5 mg 3 times a day. FINAL DISCHARGE DIAGNOSES: 1. COVID-19 pneumonia, acute hypoxic respiratory failure, resolved. 2. Other medical problems include: A. Hypertension, seems to be reasonably controlled. B. Type 2 diabetes mellitus, well controlled. C. Hyperlipidemia. D. Overactive bladder. E. Protein-calorie malnutrition, serum albumin is only 1.2 g/dL. KAILEY FRANK MD DR: SHAWN/radha JOB#: [id number] / [id number]
[2020-05-07 10:56] VITALS: BP 138/61
--- NOTE | 2020-05-07 11:47 | PDOC ---
PULMONARY PROGRESS NOTES DATE: 05/07/20 TIME: 11:46 Subjective Now on RA a-febrile No increased cough or SOA No overnight concerns from nursing Vitals Vital Signs Date Time Temp Pulse Resp B/P (MAP) Pulse Ox O2 Delivery O2 Flow Rate FiO2 05/07/20 10:56 97.8 100 18 138/61 (86) 96 Room Air 97.8 05/07/20 07:00 2.0 Comments visual exam done due to COVID-19 pandemia. RRR on HFNC No EDEMA no respiratory distress, no skin rash Labs Laboratory Tests Test 05/05/20 12:12 05/05/20 15:56 05/05/20 20:53 05/06/20 01:55 Glucose (Fingerstick) 121 mg/dL (70-99) 89 mg/dL (70-99) 81 mg/dL (70-99) 46 mg/dL (70-99) Test 05/06/20 02:16 05/06/20 07:00 05/06/20 08:33 05/06/20 09:45 Glucose (Fingerstick) 196 mg/dL (70-99) 48 mg/dL (70-99) 92 mg/dL (70-99) 92 mg/dL (70-99) White Blood Count 13.2 x10^3/uL (4.0-11.0) Red Blood Count 3.92 x10^6/uL (3.50-5.40) Hemoglobin 12.5 g/dL (12.0-15.5) Hematocrit 36.8 % (36.0-47.0) Mean Corpuscular Volume 94 fL (79-100) Mean Corpuscular Hemoglobin 32 pg (25-35) Mean Corpuscular Hemoglobin Concent 34 g/dL (31-37) Red Cell Distribution Width 12.8 % (11.5-14.5) Platelet Count 212 x10^3/uL (140-400) Sodium Level 135 mmol/L (136-145) Potassium Level 5.4 mmol/L (3.5-5.1) Chloride Level 103 mmol/L (98-107) Carbon Dioxide Level 29 mmol/L (21-32) Anion Gap 3 (6-14) Blood Urea Nitrogen 35 mg/dL (7-20) Creatinine 0.8 mg/dL (0.6-1.0) Estimated GFR (Cockcroft-Gault) 70.7 Glucose Level 52 mg/dL (70-99) Calcium Level 9.2 mg/dL (8.5-10.1) Test 05/06/20 16:08 05/06/20 16:28 05/06/20 21:33 05/07/20 04:35 Glucose (Fingerstick) 51 mg/dL (70-99) 56 mg/dL (70-99) 68 mg/dL (70-99) Sodium Level 137 mmol/L (136-145) Potassium Level 5.2 mmol/L (3.5-5.1) Chloride Level 103 mmol/L (98-107) Carbon Dioxide Level 25 mmol/L (21-32) Anion Gap 9 (6-14) Blood Urea Nitrogen 30 mg/dL (7-20) Creatinine 0.8 mg/dL (0.6-1.0) Estimated GFR (Cockcroft-Gault) 70.7 Glucose Level 69 mg/dL (70-99) Calcium Level 8.6 mg/dL (8.5-10.1) Test 05/07/20 07:03 05/07/20 11:16 Glucose (Fingerstick) 94 mg/dL (70-99) 70 mg/dL (70-99) Laboratory Tests Test 05/06/20 16:08 05/06/20 16:28 05/06/20 21:33 05/07/20 04:35 Glucose (Fingerstick) 51 mg/dL (70-99) 56 mg/dL (70-99) 68 mg/dL (70-99) Sodium Level 137 mmol/L (136-145) Potassium Level 5.2 mmol/L (3.5-5.1) Chloride Level 103 mmol/L (98-107) Carbon Dioxide Level 25 mmol/L (21-32) Anion Gap 9 (6-14) Blood Urea Nitrogen 30 mg/dL (7-20) Creatinine 0.8 mg/dL (0.6-1.0) Estimated GFR (Cockcroft-Gault) 70.7 Glucose Level 69 mg/dL (70-99) Calcium Level 8.6 mg/dL (8.5-10.1) Test 05/07/20 07:03 05/07/20 11:16 Glucose (Fingerstick) 94 mg/dL (70-99) 70 mg/dL (70-99) Medications Active Scripts Medications Dose Route/Sig Max Daily Dose Days Date Category Lantus Solostar (Insulin Glargine,Hum.rec.anlog) 100 Unit/1 Ml Insuln.pen 35 Unit SQ QHS 04/28/20 Reported Welchol (Colesevelam Hcl) 625 Mg Tablet 3 Tab PO BID 30 04/28/20 Reported Proair Hfa (Albuterol Sulfate) 8.5 Gm Hfa.aer.ad 1 Puff INH PRN Q6HRS PRN 04/28/20 Reported Oxybutynin Chloride 5 Mg Tablet 5 Mg PO TID 04/28/20 Reported Lisinopril 20 Mg Tablet 1 Tab PO QHS 04/28/20 Reported Fenofibrate 54 Mg Tablet 145 Mg PO DAILY 05/27/14 Reported Metformin Hcl 1,000 Mg Tablet 1 Tab PO BID 05/27/14 Reported Glimepiride 2 Mg Tablet 1 Tab PO DAILY 05/27/14 Reported Comments CXR 05/04/2020 IMPRESSION: Continued presence of diffuse bilateral parenchymal opacities with mild interval improvement. Impression . IMPRESSION: 1. Acute hypoxemic respiratory failure.,improving 2. COVID-19 pneumonia. 3. Possible bacterial pneumonia. 4. Abnormal CT chest, compatible with COVID-19. 5. Chronic urinary tract infection. 6. Diabetes. 7. leukocytosis Plan . PLAN: on RA doing much better Chest x-ray reviewed, bilateral pulmonary infiltrates consistent with COVID-19 infection Status post remdesivir/Convalescent serum. po steroids Follow Infectious Disease recommendations-- off ABX Follow D-dimer. 2.8 on 05/01 High-dose DVT prophylaxis/GI prophylaxis ok with ct home Discussed with SAM RILEY MD May 07, 2020 11:47
[2020-05-07] MEDS ORDERED: PRED20TA PO (13:25)
--- NOTE | 2020-05-07 15:01 | NUR ---
DISCHARGE INSTRUCTIONS DISCUSSED WITH PATIENT. ALL PATIENTS QUESTIONS ANSWERED BY THIS RN. PATIENT GIVEN PRESCRIPTION FOR TAPERED PREDNISONE. NO OXYGEN REQUIREMENTS AT DISCHARGE. PATIENTS BELONGINGS INCLUDING CELL PHONE AND CHARGE WITH PATIENT AT TIME OF DISCHARGE. BOTH PATIENTS IV'S REMOVED AND TELE OFF. PATIENT STABLE AT TIME OF DISCHARGE. PATIENT INFORMED TO QUARANTINE UNTIL 05/13(14 DAYS SINCE HOSPITALIZATION). PATIENT GIVEN CORONAVIRUS DISEASE HANDOUT. PATIENT ESCORTED TO HUSBANDS VEHICLE PER WHEELCHAIR BY THIS RN.
--- NOTE | 2020-05-07 16:50 | NUR ---
ESTER following. Spoke with RN and reviewed chart. Pt from home with spouse. 6 min walk indicated no need for 02 on discharge. Pt declined the need for in-home care per RN. PT recommendation is home with assistance. Pt lives with spouse and has assistance. Pt on oral medications. No further SW needs identified at this time. Addendum: 05/08/20 at 1111 by KODAK NORMAN Phone call from pt's [id number] stating concern about pt not having HH on discharge. ESTER called pt who stated she got stuck on the toliet last night but a friend was able to help her off and get a stool riser. Pt stated she would actually now like HH after thinking about it more. Pt stated her is current with [facility] and she would like to be seen by them as well. ESTER spoke with Jairo from [facility]. ESTER faxed clinicals at pt request. Jairo to call Dr. Luz for HH discharge orders and Dr. Luz agreeable. ESTER notified pt. No further SW needs at this time. Addendum: 05/09/20 at 1119 by KODAK NORMAN ESTER called [facility] to check and make sure HH orders were obtained and they were. Start of care is 05/10.
== END 2020-05-07 15:05 | disposition home or self-care (01) | DRG 177 ==
LOC: 1 WEST ICU 18:15 → 6 SOUTH 05-04 14:41
PROVIDERS: ADMIT Internal Medicine; ATTEND Internal Medicine
PROC: XW13325 Transfusion of Convalescent Plasma (Nonautologous) into Peripheral Vein, Percutaneous Approach, New Technology Group 5 (ICD-10-PCS; principal; 2020-04-29)
PROC: XW033E5 Introduction of Remdesivir Anti-infective into Peripheral Vein, Percutaneous Approach, New Technology Group 5 (ICD-10-PCS; 2020-05-07)
DX: U07.1 COVID-19 (principal); J96.01 Acute respiratory failure with hypoxia; J12.89 Other viral pneumonia; C18.9 Malignant neoplasm of colon, unspecified; N39.0 Urinary tract infection, site not specified; E46 Unspecified protein-calorie malnutrition; B37.9 Candidiasis, unspecified; E11.9 Type 2 diabetes mellitus without complications; E78.5 Hyperlipidemia, unspecified; I10 Essential (primary) hypertension; N32.81 Overactive bladder; Z82.3 Family history of stroke; Z83.3 Family history of diabetes mellitus; Z87.440 Personal history of urinary (tract) infections; Z88.1 Allergy status to other antibiotic agents; Z90.710 Acquired absence of both cervix and uterus; E66.9 Obesity, unspecified; Z68.26 Body mass index [BMI] 26.0-26.9, adult; Z79.899 Other long term (current) drug therapy; Z88.8 Allergy status to other drugs, medicaments and biological substances
CPT/HCPCS: 36415; 36600; 71045; 80048; 80053; 82805; 82962; 83615; 85007; 85025; 85027; 85379; 86140; 86850; 86900; 86901; 86927; 94618; 94760; 99285; J0696; J1650; J1815; J2020; J2185; J2405; J2920; J7512; 97530-GP; G0378; P9017